=== PATIENT | female | born 2005 | race Caucasian/White ===

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

== ENCOUNTER 2024-01-31 16:31 | Emergency (ER) | payer OTHER, SELFPAY ==
--- NOTE | ~2024-01-31 | CT_ITS ---
EXAMINATION: CT ABDOMEN AND PELVIS WITH CONTRAST CLINICAL INFORMATION: Right lower quadrant pain. COMPARISON: None available. TECHNIQUE: Multidetector volumetric images were obtained from the superior aspect of the liver through the pubic symphysis following administration 80 mL of Omnipaque 350 intravenous contrast. Sagittal and coronal reformatted images were obtained on the technologist's workstation. Oral contrast: No This CT examination was performed using dose optimization techniques as appropriate, variously including the following: *Automated exposure control *Adjustment of mA and/or kV according to patient size (this includes techniques or standardized protocols for targeted exams where dose is matched to indication/reason for exam; i.e. extremities or head) *Use of iterative reconstruction technique DLP: 328 mGy-cm FINDINGS: LUNG BASES: The visualized lung bases are unremarkable. LIVER, GALLBLADDER, AND BILIARY TREE: The liver is normal in size, shape, and attenuation. No focal hepatic lesion or biliary ductal dilatation is present. The gallbladder is unremarkable with no evidence of radiopaque gallstones, gallbladder wall thickening, or obvious pericholecystic inflammatory changes. PANCREAS: Unremarkable. SPLEEN: Unremarkable. ADRENAL GLANDS: Unremarkable. KIDNEYS AND URETERS: The kidneys are normal in size, shape, and attenuation. No hydronephrosis, hydroureter, or calculi seen. No perinephric stranding. BLADDER: There is minimal air within the urinary bladder. GASTROINTESTINAL TRACT: The appendix is within normal limits for size measuring 6 mm. ABDOMINAL WALL: No significant hernia is appreciated. LYMPH NODES: Normal. VASCULAR: Unremarkable. PELVIC VISCERA: There is a 3 cm low-density structure within the right adnexa. There is free fluid within the right adnexa and cul-de-sac. OSSEOUS STRUCTURES: Unremarkable. CT/CT abdomen pelvis w IV con IMPRESSION: 1. There is a 3 cm low-density structure within the right adnexa. There is free fluid within the right adnexa and cul-de-sac. Consider recent cyst rupture. 2. The appendix is within normal limits for size. 3. Minimal air within the urinary bladder. Recommend correlation with recent instrumentation. Fleischner guidelines were followed.
[2024-01-31 17:07] VITALS: BP 114/70; PULSE 85; RESP 16; TEMP 36.6; O2SAT 96; BMI 21.2
--- NOTE | 2024-01-31 17:07 | ECG_ITS ---
Test Reason : DIZZINESS Blood Pressure : / mmHG Vent. Rate : 076 BPM Atrial Rate : 076 BPM P-R Int : 146 ms QRS Dur : 080 ms QT Int : 378 ms P-R-T Axes : 047 094 032 degrees QTc Int : 425 ms Normal sinus rhythm Rightward axis Borderline ECG No previous ECGs available Referred By: Rosita Abdullahi Electronically Signed By:ZACHARIAH MARINO
--- NOTE | 2024-01-31 17:07 | ED.GENADULT ---
HPI - General Adult General Chief complaint: Abdominal Pain Stated complaint: dizzy vomiting nausea right abd pain Time Seen by Provider: 02/01/24 00:17 Source: patient and family Mode of arrival: ambulatory Limitations: no limitations History of Present Illness HPI narrative: Patient comes to the emergency room complaining of right lower quadrant pain for 2 days. Patient states that she feels a bit lightheaded . Patient denies chest pain or shortness of breath, complaining of nausea and vomiting, no diarrhea. Related Data Previous Rx's Medication Instructions Recorded ketorolac 10 mg tablet 10 mg PO BID PRN pain #7 tabs 02/01/24 Allergies Allergy/AdvReac Type Severity Reaction Status Date / Time Sulfa (Sulfonamide Allergy Severe Anaphylaxis Verified 01/31/24 17:06 Antibiotics) sulfamethoxazole Allergy Severe Anaphylaxis Verified 01/31/24 17:06 [From Bactrim] trimethoprim [From Bactrim] Allergy Severe Anaphylaxis Verified 01/31/24 17:06 Review of Systems Review of Systems: Constitutional : No Weight loss, No Fever, No Chills, No Night Sweats, No Fatigue, No Malaise ENT/Mouth : No Hearing loss, No Ear Pain, No Nasal Congestion, No Sinus Pain, No Hoarseness, No sore throat, No Rhinorrhea, No Swallowing Difficulty Eyes: No Eye Pain, No Swelling, No Redness, No Foreign Body, No Discharge, No Vision Changes Cardiovascular : No Chest Pain, No SOB, No Dyspnea on Exertion, No Orthopnea, No Edema, No Palpitations, complaining of lightheadedness, denies syncopal episode Respiratory : No Cough, No Sputum, No Wheezing, No Smoke Exposure, No Dyspnea Gastrointestinal : Complaining of nausea and vomiting No Diarrhea, No Constipation, complaining of right abdominal pain upper and lower quadrant Genitourinary : no irregular bleeding, No Dysuria, No Urinary Frequency, No Hematuria, No Urinary Incontinence, No Urgency, No Flank Pain, No Urinary Flow Changes, No Hesitancy Musculoskeletal : No joint pain, No Myalgias, No Joint Swelling Skin : No Skin Lesions, No rash Neuro : No Weakness, No Numbness, No Paresthesias, No Loss of Consciousness, No Dizziness, No Headache Psych : No Anxiety/Panic, No Depression, No SI/HI/AH/VH, No Social Issues, Heme/Lymph: No Bruising, No Bleeding,No Lymphadenopathy Endocrine : No Polyuria, No Polydipsia, No Temperature Intolerance [facility] Social History Social History (Updated 01/25/23 @ 11:58 by Lena Macias NP) Household Members Other:: Lives w/ mom and sister Smoked in Last 30 Days: No Use of substances other than those prescribed or required for medical reasons: No Advance Directives: No Advance Directives Information Provided: No Patient : No Physical Exam ED Vital Signs: Vital Signs - 24 hr 01/31/24 17:07 01/31/24 19:19 01/31/24 23:24 Temperature 97.9 F 98.0 F 97.4 F Pulse Rate 85 86 83 Respiratory Rate 16 18 17 Blood Pressure 114/70 140/71 H 111/68 Pulse Oximetry 96 99 98 Oxygen Delivery Method Room Air Room Air Room Air 02/01/24 00:24 02/01/24 00:48 02/01/24 00:50 Temperature 97.4 F Pulse Rate 83 63 73 Respiratory Rate 17 Blood Pressure 111/68 101/54 L 114/60 Pulse Oximetry 98 Oxygen Delivery Method Room Air 02/01/24 00:52 Temperature Pulse Rate 88 Respiratory Rate Blood Pressure 112/69 Pulse Oximetry Oxygen Delivery Method BMI result Body Mass Index 21.2 Const Other: Appearance: Alert. Oriented X3. No acute distress. Eyes: Pupils equal, round and reactive to light. ENT: Pharynx normal. Neck: Normal inspection. Neck supple. No lymph nodes noted. No crepitus CVS: Normal heart rate and rhythm. Pulses normal. Normal S1 and S2 Respiratory: No respiratory distress. Breath sounds normal. No Wheezing. No rales Abdomen: Soft , mild discomfort to palpation in right upper quadrant and right lower quadrant, negative Jones sign, no pain at the McBurney's point No rigidity. No distention. Skin: Skin warm and dry. Normal skin color. Normal skin turgor. Extremities: No lower extremity edema. No Lacerations. No Rash Neuro: Oriented X 3. No motor deficit. No sensory deficit. Moving all extremities. No slurred speech. CN 2 through 12 grossly intact Psych: calm, cooperative, normal affect Course Course Course Narrative: RME performed by Rosita Abdullahi PA-C. Patient is a 18 year old assigned female at presenting to the emergency department with abdominal pain, nausea, vomiting, and dizziness. Detailed physical exam and review of systems are deferred to the molder fitting. Labs ordered. Patient placed back in the waiting room pending room availability and results. Medications Administered Discontinued Medications Generic Name Dose Route Start Last Admin Trade Name Delmy PRN Reason Stop Dose Admin Sodium Chloride 1,000 mls @ 999 mls/hr 02/01/24 00:19 02/01/24 01:00 Ns IVCONT 02/01/24 01:19 999 mls/hr .Q1H1M ONE Administration Iohexol 85 ml 02/01/24 01:30 02/01/24 01:30 Iohexol 350 Mg/Ml 100 Ml Infus..Btl IV 02/01/24 01:31 85 ml ONCE ONE Administration Ketorolac Tromethamine 30 mg 02/01/24 00:40 02/01/24 01:00 Ketorolac Tromethamine 30 Mg/Ml Vial IVPUSH 02/01/24 00:41 30 mg ONCE ONE Administration Ondansetron HCl 4 mg 02/01/24 00:40 02/01/24 01:00 Ondansetron Hcl 4 Mg/2 Ml Vial IVPUSH 02/01/24 00:41 4 mg ONCE ONE Administration Medical Decision Making Medical Decision Making [facility] Narrative: -my interpretation of labs, normal hematology, normal chemistry, urinalysis negative, hCG negative -my interpretation of CT scan of the abdomen: No obvious abnormality, questionable small amount of free fluid in the pelvis Differential Diagnosis Differential Diagnoses: The differential diagnosis associated with the presentation includes (Appendicitis, acute cholecystitis, ovarian cysts) Admission/Observation Consideration of admission/observation: Escalation of care including admission/observation considered (Given patient's symptoms, admission considered.) Lab Data [facility] Lab Attestation statement: I reviewed the patient's lab results. 01/31/24 17:51 01/31/24 17:51 Labs: Lab Results 01/31/24 01/31/24 Range/Units 17:51 18:02 WBC 9.5 (4.8-10.8) X10*3/uL RBC 4.40 (4.20-5.50) X10*6/uL Hgb 13.1 (12.0-16.0) g/dl Hct 38.7 (37.0-47.0) % MCV 88.0 (80.0-98.0) fL MCH 29.8 (27.0-33.0) pg MCHC 33.9 (31.0-35.0) g/dl RDW 12.0 (11.0-16.0) % Plt Count 261 (160-400) X10*3/uL MPV 8.5 L (9.4-12.3) fL Immature Gran % (Auto) 0.1 (0.0-0.4) % Neut % (Auto) 60.7 (45-73) % Lymph % (Auto) 27.5 (20-40) % Sawyer % (Auto) 6.1 (2-11) % Eos % (Auto) 5.3 H (0-4) % Baso % (Auto) 0.3 (0-2) % Lymph # (Auto) 2.6 (1.2-4.9) X10*3/uL Sawyer # (Auto) 0.6 (0.1-1.2) X10*3/uL Eos # (Auto) 0.5 H (0.0-0.4) X10*3/uL Baso # (Auto) 0.0 (0.0-0.2) X10*3/uL Abs Immat Gran (auto) 0.01 (0.00-0.03) X10*3/uL Absolute Neuts (auto) 5.8 (2.0-8.3) x10*3/uL Absolute Nucleated RBC 0.000 (0.0-0.012) X10*3/uL Nucleated RBC % (auto) 0.0 (0.0-0.2) /100WBC Sodium 138 (135-145) mmol/L Potassium 3.9 (3.3-5.1) mmol/L Chloride 105 (96-108) mmol/L Carbon Dioxide 25 (22-29) mmol/L Anion Gap 12 (12-20) BUN 10 (9-16) mg/dL Creatinine 0.65 (0.5-1.4) mg/dL Estim Creat Clear Calc 110.1 Estimated GFR > 60 Random Glucose 89 (60-115) mg/dL Calcium 9.4 (8.4-10.2) mg/dL Magnesium 1.9 (1.6-2.6) mg/dL Total Bilirubin 0.3 (0.0-1.0) mg/dL AST 15 (5-31) U/L ALT 13 (0-31) U/L Alkaline Phosphatase 91 (39-117) U/L Troponin I High Sens < 2.7 (<3.5-17.0) ng/L Total Protein 8.0 (6.5-8.0) g/dL Albumin 4.5 (3.5-5.0) g/dL Beta HCG, Quant < 2 mIU/mL Urine Color Yellow Urine Appearance Clear Urine pH 5.5 (5.0-9.0) Ur Specific [place] 1.025 (1.005-1.025) Urine Protein Negative (Neg-Trace) mg/dL Urine Glucose (UA) Negative (Negative) mg/dL Urine Ketones Negative (Negative) mg/dL Urine Blood Negative (Negative) Urine Nitrite Negative (Negative) Ur Leukocyte Esterase Negative (Negative) Influenza Type A (PCR) NEGATIVE (Negative) Influenza Type B (PCR) NEGATIVE (Negative) RSV RNA Qual (PCR) NEGATIVE (Negative) SARS-CoV-2 RNA (RT-PCR) NEGATIVE (Negative) Independent Interpretation I performed an independent interpretation of an: CT Scan Radiology Impression Discussion of test interpretation with radiology: I have reviewed the radiologist's reading. Radiologist Impression: FINDINGS: LUNG BASES: The visualized lung bases are unremarkable. LIVER, GALLBLADDER, AND BILIARY TREE: The liver is normal in size, shape, and attenuation. No focal hepatic lesion or biliary ductal dilatation is present. The gallbladder is unremarkable with no evidence of radiopaque gallstones, gallbladder wall thickening, or obvious pericholecystic inflammatory changes. PANCREAS: Unremarkable. SPLEEN: Unremarkable. ADRENAL GLANDS: Unremarkable. KIDNEYS AND URETERS: The kidneys are normal in size, shape, and attenuation. No hydronephrosis, hydroureter, or calculi seen. No perinephric stranding. BLADDER: There is minimal air within the urinary bladder. GASTROINTESTINAL TRACT: The appendix is within normal limits for size measuring 6 mm. ABDOMINAL WALL: No significant hernia is appreciated. LYMPH NODES: Normal. VASCULAR: Unremarkable. PELVIC VISCERA: There is a 3 cm low-density structure within the right adnexa. There is free fluid within the right adnexa and cul-de-sac. OSSEOUS STRUCTURES: Unremarkable. CT/CT abdomen pelvis w IV con IMPRESSION: 1. There is a 3 cm low-density structure within the right adnexa. There is free fluid within the right adnexa and cul-de-sac. Consider recent cyst rupture. 2. The appendix is within normal limits for size. 3. Minimal air within the urinary bladder. Recommend correlation with recent instrumentation. Fleischner guidelines were followed. Critical Care Time Critical Care Time Critical Care Time: Yes Total Critical Care Time: 30 Attestation: I have personally provided critical care time. Time includes review of lab data, radiology results, discussion with consultants, and monitoring for potential decompensation. Intervention performed as documented. Discharge Plan Discharge Clinical Impression: Ovarian cyst rupture, Orthostatic hypotension Patient Disposition: Home, Self-Care Instructions: Ovarian Cyst (ED), Hypotension (ED) Additional Instructions: Please follow-up with your primary care physician tomorrow. If you have any worsening or new symptoms, please return to the emergency room or call 911 Prescriptions: New ketorolac 10 mg tablet 10 mg PO BID PRN (Reason: pain) Qty: 7 0RF Rx Instructions: Do not take ibuprofen, Aleve, naproxen with this medication, only Tylenol if needed Stand Alone Forms: Work/School Release
[2024-01-31 17:56] LABS: MANUAL DIFF FLAG NO
[2024-01-31 17:59] LABS: Basophils Percent Auto 0.3 % (0-2); Eosinophils Absolute Auto 0.5 X10*3/uL (0.0-0.4); Eosinophils Percent Auto 5.3 % (0-4); Hematocrit 38.7 % (37.0-47.0); Hemoglobin 13.1 g/dl (12.0-16.0); Imm Gran Abs Auto 0.01 X10*3/uL (0.00-0.03); Imm Gran Pct Auto 0.1 % (0.0-0.4); Lymphocytes Absolute Auto 2.6 X10*3/uL (1.2-4.9); Lymphocytes Percent Auto 27.5 % (20-40); Mean Corpuscular HGB Conc 33.9 g/dl (31.0-35.0); Mean Corpuscular Hemoglobin 29.8 pg (27.0-33.0); Mean Platelet Volume 8.5 fL (9.4-12.3); Monocytes Absolute Auto 0.6 X10*3/uL (0.1-1.2); Monocytes Percent Auto 6.1 % (2-11); Neutrophils Absolute Auto 5.8 x10*3/uL (2.0-8.3); Neutrophils Percent Auto 60.7 % (45-73); Platelet Count 261 X10*3/uL (160-400); White Blood Count 9.5 X10*3/uL (4.8-10.8)
[2024-01-31 18:17] LABS: Alanine Aminotransferase 13 U/L (0-31); Albumin Level 4.5 g/dL (3.5-5.0); Alkaline Phosphatase 91 U/L (39-117); Anion Gap 12 (12-20); Aspartate Amino Transferase 15 U/L (5-31); Bilirubin Total 0.3 mg/dL (0.0-1.0); Blood Urea Nitrogen 10 mg/dL (9-16); Calcium 9.4 mg/dL (8.4-10.2); Carbon Dioxide 25 mmol/L (22-29); Chloride 105 mmol/L (96-108); Creatinine Clr Calc Pharmacy 110.1; Estimated Glomerular Filt Rate > 60; Glucose Random 89 mg/dL (60-115); Magnesium 1.9 mg/dL (1.6-2.6); Potassium 3.9 mmol/L (3.3-5.1); Sodium 138 mmol/L (135-145)
[2024-01-31 18:18] LABS: Troponin-I High Sensitivity < 2.7 ng/L (<3.5-17.0)
[2024-01-31 18:18] LABS: Appearance Urine Clear; Color Urine Yellow; Glucose Urine UA Negative (Negative); Leukocyte Esterase Urine Negative (Negative); Nitrite Urine Negative (Negative); PH 5.5 (5.0-9.0); Specific Gravity - Urine 1.025 (1.005-1.025); Urine Blood Negative (Negative); Urine Ketones Negative (Negative); Urine Protein Negative (Neg-Trace)
[2024-01-31 18:20] LABS: HCG Quantitative < 2 mIU/mL
[2024-01-31 18:34] LABS: Influenza A PCR NEGATIVE (Negative); Influenza B PCR NEGATIVE (Negative); Resp Syncy Virus RNA Qual PCR NEGATIVE (Negative); SARS COV2 PCR INHOUSE NEGATIVE (Negative)
[2024-01-31 19:19] VITALS: BP 140/71; PULSE 86; RESP 18; TEMP 36.7; O2SAT 99
[2024-01-31 23:24] VITALS: BP 111/68; PULSE 83; RESP 17; TEMP 36.3; O2SAT 98
[2024-02-01 00:24] VITALS: BP 111/68; PULSE 83; RESP 17; TEMP 36.3; O2SAT 98
[2024-02-01 00:48] VITALS: BP 101/54; PULSE 63
[2024-02-01 00:50] VITALS: BP 114/60; PULSE 73
[2024-02-01 00:52] VITALS: BP 112/69; PULSE 88
[2024-02-01] MEDS: ondansetron HCL 4 MG/2 ML VIAL IVPUSH (01:00)
[2024-02-01] MEDS: Ketorolac Tromethamine 30 MG/ML VIAL IVPUSH (01:00)
[2024-02-01] MEDS: 0.9 % Sodium Chloride 1,000 ML 999 ML IVCONT (01:00)
[2024-02-01] MEDS: iohexoL 350 MG/ML 100 ML INFUS..BTL 85 ML IV (01:30)
[2024-02-01 03:04] VITALS: BP 114/47; PULSE 78; RESP 16; TEMP 36.8; O2SAT 100
[2024-02-01 03:12] VITALS: BP 114/47; PULSE 78; RESP 16; TEMP 36.8; O2SAT 100
== END 2024-02-01 04:13 | disposition home or self-care (01) ==
PROVIDERS: Physician Assistant Medical; Emergency Provider Emergency Medicine; PCP Internal Medicine
DX: N83.201 Unspecified ovarian cyst, right side (principal); I95.1 Orthostatic hypotension; Z11.52 Encounter for screening for COVID-19; Z20.828 Contact with and (suspected) exposure to other viral communicable diseases
CPT/HCPCS: 0241U; 74177; 80053; 81003; 83735; 84484; 84702; 85025; 93005; 96361; 96374; 96375; 99285; J1885; J2405; Q9967

== ENCOUNTER → 2024-01-31 17:07 | Outpatient (BNV) | payer OTHER, SELFPAY | PROVIDERS: Emergency Provider Emergency Medicine; PCP Internal Medicine; Visit Provider Internal Medicine | DX: R42 Dizziness and giddiness (principal) | CPT/HCPCS: 93010 ==

== ENCOUNTER 2024-11-06 09:22 | Emergency (ER) | payer OTHER, SELFPAY ==
[2024-11-06 09:34] VITALS: BP 107/66; PULSE 82; RESP 16; TEMP 36.7; O2SAT 99; BMI 23.2
[2024-11-06 12:37] LABS: Appearance Urine Cloudy; Color Urine Yellow; Glucose Urine UA Negative (Negative); Leukocyte Esterase Urine Large (3+) (Negative); Nitrite Urine Positive (Negative); PH 8.5 (5.0-9.0); Specific Gravity - Urine 1.025 (1.005-1.025); UMIC TRIGGER UACC YES; Urine Blood Moderate (2+) (Negative); Urine Ketones Negative (Negative); Urine Protein 100 (2+) mg/dL (Neg-Trace)
[2024-11-06 12:41] LABS: Bacteria Urine 4+ (None Seen); Hyaline Casts Urine 0-2 /LPF (0-2); RBC Urine >20 /HPF (0-2); UACC Culture Trigger YES; WBC Urine >50 /HPF (0-5)
[2024-11-06 12:43] VITALS: BP 110/62; PULSE 83; RESP 14; TEMP 36.4; O2SAT 99
[2024-11-06 12:44] LABS: UPreg QC Valid YES; Urine Pregnancy NEGATIVE (NEGATIVE)
--- NOTE | 2024-11-06 14:01 | ED_ITS ---
HPI - Female Genitourinary General Chief complaint: Urogenital-Female Stated complaint: UTI? Time Seen by Provider: 11/06/24 12:32 Source: patient and RN notes reviewed Mode of arrival: ambulatory Limitations: no limitations History of Present Illness ED Provider: Mirta Duffy PA-C HPI Narrative: This is a 19-year-old female, with no known medical problems, who presents emergency department with complaints of dysuria, urinary frequency, urgency, suprapubic pain, and hematuria x1 week. Patient states that 1 week ago she noticed her symptoms. She has been taking cranberry pills with out much relief. She denies any new sexual partners, denies any risk for STI. She has a history of urinary tract infections in her symptoms feel similar. Denies fevers or chills. She does endorse some nausea, and had 1 episode of vomiting yesterday. Denies any normal vaginal bleeding or discharge. Last menses was October 17. No other complaints or concerns at this time. MD elicited complaint: dysuria and UTI Vaginal discharge: none Vaginal bleeding: none Urinary symptoms: Dysuria, Urgency, Frequency and Hematuria Exacerbating factors: urination Relieving factors: none Associated symptoms: nausea and vomiting Treatment prior to arrival: none Sexual activity: No Patient : No Related Data Previous Rx's ?Medication ?Instructions ?Recorded ketorolac 10 mg tablet 10 mg PO BID PRN pain #7 tabs 02/01/24 cefuroxime axetil 500 mg tablet 500 mg PO BID 7 days #14 tabs 11/06/24 phenazopyridine 100 mg tablet 100 mg PO TID PRN pain 6 doses #6 11/06/24 (Pyridium) tabs Allergies Allergy/AdvReac Type Severity Reaction Status Date / Time Sulfa (Sulfonamide Allergy Severe Anaphylaxis Verified 11/06/24 09:35 Antibiotics) sulfamethoxazole Allergy Severe Anaphylaxis Verified 11/06/24 09:35 [From Bactrim] trimethoprim [From Bactrim] Allergy Severe Anaphylaxis Verified 11/06/24 09:35 Review of Systems Review of Systems: Yes all other systems are reviewed and are negative Constitutional: Constitutional: Reports as per [facility] Past Medical History Attestation statement: The following information was validated with the patient. Social History Social History Household Members Other:: Lives w/ mom and sister Physical Exam Vital Signs: Vital Signs: Last Vital Signs Temp 97.5 F 11/06/24 12:43 Pulse 83 11/06/24 12:43 Resp 14 11/06/24 12:43 BP 110/62 11/06/24 12:43 Pulse Ox 99 11/06/24 12:43 O2 Del Method Room Air 11/06/24 12:43 BMI result Body Mass Index 23.2 Const: General: cooperative, comfortable and no acute distress Orientation/consciousness: patient oriented x3 Limitations: no limitations HEENT: Head: Yes normal to inspection, Yes normocephalic and Yes atraumatic Ears: hearing grossly normal bilaterally General nose exam: Normal external nose present Face and sinus: Yes normal facial exam Mouth: Normal oral and palatal mucosa present, oropharynx normal and moist mucous membranes Throat: Yes posterior oropharynx normal Eyes: General: appearance normal, both eyes and all related structures Eyel ids: Yes eyelids normal Conjunctivae: conjunctivae normal Sclerae: sclerae normal Pupils: Equal, round and reactive pupils present EOM: EOMs intact bilaterally Neck: Neck: Yes normal visual inspection, Yes full ROM and Yes no lymphadenopathy Lymphatic: no lymphadenopathy noted Chest: Chest palpation & inspection: normal inspection of the chest Resp: Effort & Inspection: normal respiratory effort and able to speak in complete sentences Auscultation: clear to auscultation bilaterally, no crackles, no rales, no rhonchi and no wheezes Cardio: Rate: regular rate Rhythm: regular rhythm Heart sounds: S1 normal heart sound present and S2 normal heart sound present GI: Other: Abdomen is soft, with mild tenderness palpation in the suprapubic region. No rebound or guarding. No tenderness overlying McBurney's point. Inspection: Yes normal to inspection : Other: No CVA tenderness Skin: General skin exam: no rashes or lesions noted Trauma: no lacerations or abrasions Wounds: no wounds Neuro: General: patient oriented x3 and moves all extremities Cranial nerves: Yes Equal, round and reactive pupils present Extrem: General: Yes normal to inspection Right upper extremity: normal to inspection Left upper extremity: normal to inspection Right lower extremity: normal to inspection Left lower extremity: normal to inspection Medical Decision Making Medical Decision Making MDM Narrative: This is a 19-year-old female, with no known medical problems, who presents emergency department with complaints of urinary frequency, urgency, dysuria, hematuria x1 week. On arrival, vital signs within normal limits. She is speaking in full sentences under no acute distress. She has mild suprapubic tenderness on examination. No CVA tenderness. Differential diagnoses include UTI, pyelonephritis, obstructive uropathy, STI. Patient reports no risk of STI. Urine appears to be infected, treat as a urinary tract infection. She has no CVA tenderness suggest pyelonephritis. Given strict return precautions. Patient stable for discharge patient stable for discharge Differential Diagnosis Differential Diagnoses: The differential diagnosis associated with the presentation includes See above Lab Data MDM Lab Attestation statement: I reviewed the patient's lab results. Urine with moderate blood, positive nitrite, large leuk esterases, rbc's, wbc's, 4+ bacteria, negative . Labs: Lab Results 11/06/24 Range/Units 12:28 Urine Color Yellow Urine Appearance Cloudy Urine pH 8.5 (5.0-9.0) Ur Specific [place] 1.025 (1.005-1.025) Urine Protein 100 (2+) H (Neg-Trace) mg/dL Urine Glucose (UA) Negative (Negative) mg/dL Urine Ketones Negative (Negative) mg/dL Urine Blood Moderate (2+) H (Negative) Urine Nitrite Positive H (Negative) Ur Leukocyte Esterase Large (3+) H (Negative) Urine RBC >20 H (0-2) /HPF Urine WBC >50 H (0-5) /HPF Ur Squamous Epith Cells 3-5 (0-2) /HPF Urine Bacteria 4+ (None Seen) Hyaline Casts 0-2 (0-2) /LPF Urine Test NEGATIVE (NEGATIVE) Discharge Plan Discharge Clinical Impression: Urinary tract infection Patient Disposition: Home, Self-Care Instructions: Urinary Tract Infection in Women (ED) Additional Instructions: You were seen in the emergency department due to urinary symptoms. You have a urinary tract infection. Please take full course of antibiotics even if your symptoms improve. We are sending your urine out for further testing, we will call you if we have to switch the antibiotic. Drink plenty of fluids get plenty of rest. Pyridium is a medication that can help alleviate some of the symptoms you are having, this will turn your urine bright orange/yellow. If any new or worsening symptoms occur including but not limited to worsening pain, high fevers, severe back pain, severe abdominal pain, please seek emergent care. Prescriptions: New cefuroxime axetil 500 mg tablet 500 mg PO BID 7 Days Qty: 14 0RF phenazopyridine [Pyridium] 100 mg tablet 100 mg PO TID PRN (Reason: pain) Qty: 6 0RF No Action ketorolac 10 mg tablet 10 mg PO BID PRN (Reason: pain) Qty: 7 0RF Rx Instructions: Do not take ibuprofen, Aleve, naproxen with this medication, only Tylenol if needed Print Language: Burkin[place]
[2024-11-06 15:17] VITALS: BP 110/62; PULSE 83; RESP 14; TEMP 36.4; O2SAT 99
== END 2024-11-06 15:18 | disposition home or self-care (01) ==
PROVIDERS: Emergency Provider Emergency Medicine; PCP Internal Medicine
DX: N39.0 Urinary tract infection, site not specified (principal); Z87.440 Personal history of urinary (tract) infections
CPT/HCPCS: 81001; 81025; 87086; 87088; 87186; 99283

== ENCOUNTER 2024-12-14 10:05 | Emergency (ER) | payer BC, SELFPAY ==
--- NOTE | ~2024-12-14 | US_ITS ---
EXAMINATION: US , LIMITED CLINICAL INFORMATION: woman. Abdominal pain. COMPARISON: None available. TECHNIQUE: Real-time transabdominal obstetric pelvic ultrasound performed using grayscale and color Doppler technique. FINDINGS: LMP: 10/17/2024. Estimated delivery date by LMP: 07/24/2025. There is a single intrauterine gestational sac with a pole. [place]-rump length measures 1.7 cm. heart rate is 169 beats per minutes. No subchorionic abnormality. Right ovary measures 2 x 4 x 1 cm with flow on color Doppler interrogation. No solid or cystic lesion. Left ovary measures 3 x 2 x 2 cm. No solid or cystic lesion. There is flow on color Doppler interrogation. US/US OB limited IMPRESSION: Single viable intrauterine gestation corresponding to 8 weeks and 2 days by ultrasound. No ovarian torsion. Electronically signed by: Aldo Archuleta MD 12/14/2024 12:47 PM [facility] [place]
[2024-12-14 10:28] VITALS: BP 111/53; PULSE 78; RESP 16; TEMP 36.8; O2SAT 100; BMI 23.4
[2024-12-14 10:52] LABS: MANUAL DIFF FLAG NO
[2024-12-14 10:54] LABS: Basophils Percent Auto 0.1 % (0-2); Eosinophils Absolute Auto 0.1 X10*3/uL (0.0-0.4); Eosinophils Percent Auto 0.7 % (0-4); Hematocrit 39.1 % (37.0-47.0); Hemoglobin 13.4 g/dl (12.0-16.0); Imm Gran Abs Auto 0.01 X10*3/uL (0.00-0.03); Imm Gran Pct Auto 0.1 % (0.0-0.4); Lymphocytes Absolute Auto 1.6 X10*3/uL (1.2-4.9); Lymphocytes Percent Auto 22.4 % (20-40); Mean Corpuscular HGB Conc 34.3 g/dl (31.0-35.0); Mean Corpuscular Hemoglobin 29.8 pg (27.0-33.0); Mean Corpuscular Volume 86.9 fL (80.0-98.0); Mean Platelet Volume 8.7 fL (9.4-12.3); Monocytes Absolute Auto 0.5 X10*3/uL (0.1-1.2); Monocytes Percent Auto 7.1 % (2-11); Neutrophils Percent Auto 69.6 % (45-73); Platelet Count 273 X10*3/uL (160-400); Red Cell Distribution Width 11.9 % (11.0-16.0); White Blood Count 7.2 X10*3/uL (4.8-10.8)
[2024-12-14 11:14] LABS: Alanine Aminotransferase 33 U/L (0-31); Albumin Level 4.2 g/dL (3.5-5.0); Alkaline Phosphatase 86 U/L (39-117); Anion Gap 11 (12-20); Aspartate Amino Transferase 35 U/L (5-31); Bilirubin Direct 0.2 mg/dL (0.0-0.5); Bilirubin Total 0.4 mg/dL (0.0-1.0); Blood Urea Nitrogen 7 mg/dL (9-16); Calcium 8.9 mg/dL (8.4-10.2); Carbon Dioxide 23 mmol/L (22-29); Chloride 108 mmol/L (96-108); Estimated Glomerular Filt Rate > 60; Glucose Random 101 mg/dL (60-115); Lipase 25 U/L (8-78); Potassium 3.9 mmol/L (3.3-5.1); Sodium 138 mmol/L (135-145); Total Protein 8.2 g/dL (6.5-8.0)
[2024-12-14 11:40] LABS: Influenza A PCR POSITIVE (Negative); Influenza B PCR NEGATIVE (Negative); Resp Syncy Virus RNA Qual PCR NEGATIVE (Negative); SARS COV2 PCR INHOUSE NEGATIVE (Negative)
[2024-12-14 11:43] LABS: HCG Quantitative 114827 mIU/mL
--- NOTE | 2024-12-14 13:19 | ED_ITS ---
HPI - General Adult General Chief complaint: Nausea/Vomiting/Diarrhea Stated complaint: Abd pain/side pain Time Seen by Provider: 12/14/24 13:19 Source: patient and other (patient's fiance) Mode of arrival: ambulatory Limitations: no limitations History of Present Illness ED Provider: Rosita Abdullahi PA-C HPI narrative: Patient is a 19 year old assigned female at with a history of early presenting to the emergency department today with nausea, abdominal pain, and vomiting. Patient states that she has had a positive home test but has not met with an OBGYN yet. Patient denies any dizziness, lightheadedness, fever, chills, blurry vision, double vision, loss of vision, chest pain, difficulty breathing, shortness of breath, back pain, night sweats, pain with urination, increased urinary frequency, increased urinary urgency, blood in her urine or stool, syncope or a near syncopal episode, recent trauma or falls, bowel incontinence, bladder incontinence, or any other complaints at this time. Relieving factors: none Exacerbating factors: none Associated symptoms: nausea/vomiting Treatments prior to arrival: none Related Data Previous Rx's ?Medication ?Instructions ?Recorded ketorolac 10 mg tablet 10 mg PO BID PRN pain #7 tabs 02/01/24 cefuroxime axetil 500 mg tablet 500 mg PO BID 7 days #14 tabs 11/06/24 phenazopyridine 100 mg tablet 100 mg PO TID PRN pain 6 doses #6 11/06/24 (Pyridium) tabs Allergies Allergy/AdvReac Type Severity Reaction Status Date / Time Sulfa (Sulfonamide Allergy Severe Anaphylaxis Verified 12/14/24 10:29 Antibiotics) sulfamethoxazole Allergy Severe Anaphylaxis Verified 12/14/24 10:29 [From Bactrim] trimethoprim [From Bactrim] Allergy Severe Anaphylaxis Verified 12/14/24 10:29 Review of Systems 2 Constitutional: Constitutional: Reports no additional constitutional complaints, Denies chills, Denies fever(s) and Denies night sweats Eyes: Eyes: Reports no additional eye complaints, Denies blurry vision, Denies change in vision, Denies diplopia, Denies eye discharge, Denies loss of vision and Denies eye pain ENT: Denies dizziness Cardiovascular: Cardiovascular: Reports no additional cardiovascular complaints, Denies chest pain, Denies lightheadedness, Denies Loss of Consciousness and Denies dyspnea Respiratory: Respiratory: Reports no additional respiratory complaints and Denies dyspnea Gastrointestinal: Gastrointestinal: Reports no additional gastrointestinal complaints, Reports abdominal pain, Denies melena, Denies hematochezia, Denies change in bowel habits, Denies change in stool character, Reports nausea and Reports vomiting Genitourinary: Genitourinary: Denies hematuria, Denies urinary frequency, Denies dysuria, Denies urinary incontinence, Denies urinary hesitancy and Denies urinary urgency Musculoskeletal: Musculoskeletal: Reports no additional musculoskeletal complaints, Denies numbness and Denies tingling Neurologic: Denies dizziness, Denies loss of vision, Denies numbness and Denies tingling Psychiatric: Psychiatric: Reports no additional psychiatric complaints Endocrine: Endocrine: Reports no additional endocrine complaints Hematologic/Lymphatic: Hematologic/Lymphatic: Reports no additional hematologic/lymphatic complaints Allergic/Immunologic: Allergic/Immunologic: Reports no additional allergic/immunologic complaints PMFSH Past Medical History Attestation statement: The following information was validated with the patient. Source: old records reviewed and nursing notes reviewed Social History Social History Household Members Other:: Lives w/ mom and sister Advance Directives: No Advance Directives Information Provided: Yes Physical Exam ED Vital Signs: Vital Signs - 24 hr 12/14/24 10:28 12/14/24 13:26 Temperature 98.3 F 98.3 F Pulse Rate 78 78 Respiratory Rate 16 16 Blood Pressure 111/53 L 111/53 L Pulse Oximetry 100 100 Oxygen Delivery Method Room Air Room Air BMI result Body Mass Index 23.4 Const General: cooperative, no acute distress, alert and awake Nutritional Appearance: well nourished Orientation/consciousness: patient oriented x3 Limitations: no limitations [facility]: Yes normal to inspection and Yes atraumatic Ears: hearing grossly normal bilaterally and external ears normal General nose exam: Normal external nose present, no nasal discharge noted and no epistaxis Face and sinus: Yes normal facial exam, No abrasion and No laceration Mouth: Normal oral and palatal mucosa present, no drooling and no muffled voice Eyes General: appearance normal, both eyes and all related structures Periorbital: periorbital findings normal Eyelids: Yes eyelids normal Conjunctivae: conjunctivae normal Pupils: Equal, round and reactive pupils present EOM: EOMs intact bilaterally Neck Neck: Yes normal visual inspection, Yes full ROM and Yes no lymphadenopathy Chest Chest palpation & inspection: normal inspection of the chest Resp Effort & Inspection: normal respiratory effort and able to speak in complete sentences GI Inspection: Yes normal to inspection Neuro General: patient oriented x3 and moves all extremities Cranial nerves: Yes Equal, round and reactive pupils present Cognition (Neuro): normal cognition Extrem General: Yes normal to inspection, Yes full ROM and Yes capillary refill normal Psych Appearance: grossly normal Mental Status: mental status grossly normal Affect: normal affect Attitude: cooperative Thought process: Normal thought process present Thought content: Normal thought content present Insight: Good insight present (Psych) Medical Decision Making Medical Decision Making MDM Narrative: Patient is a 19 year old assigned female at with a history of early presenting to the emergency department today with nausea, abdominal pain, and vomiting. Patient's physical exam was unremarkable. Patient's blood work showed showed an HCG of [id number] which is consistent with early . Patient's influenza test was positive. Patient's OBGYN US showed an 8 week IUP. I explained my physical exam findings as well as all test results to the patient and the patient's fiance. I answered all questions asked by the patient and the patient's fiance. I stressed the importance of the patient taking her medication as directed (either prescribed or as the over the counter packaging recommends). I stressed the importance of the patient following up with her primary care provider and her OBGYN. I stressed the importance of the patient returning to the emergency department immediately if her symptoms were to worsen or if she were to develop any dizziness, shortness of breath, difficulty breathing, chest pain, blurry vision, loss of vision, nausea, vomiting, abdominal pain, fever, chills, back pain, or any other complaints. Patient and the patient's fiance verbalized agreement and understanding with this treatment plan and discharge. Differential Diagnosis Differential Diagnoses: The differential diagnosis associated with the presentation includes Early Influenza Abdominal pain Admission/Observation Consideration of admission/observation: Escalation of care including admission/observation considered Patient would have been admitted to the hospital had her work up had any findings where hospital admission was appropriate and her clinical presentation warranted hospital admission. Lab Data [facility] Lab Attestation statement: I reviewed the patient's lab results. My interpretation of these results are in the [facility] Rationale portion of this note. 12/14/24 10:46 12/14/24 10:46 Labs: Lab Results 12/14/24 Range/Units 10:46 WBC 7.2 (4.8-10.8) X10*3/uL RBC 4.50 (4.20-5.50) X10*6/uL Hgb 13.4 (12.0-16.0) g/dl Hct 39.1 (37.0-47.0) % MCV 86.9 (80.0-98.0) fL MCH 29.8 (27.0-33.0) pg MCHC 34.3 (31.0-35.0) g/dl RDW 11.9 (11.0-16.0) % Plt Count 273 (160-400) X10*3/uL MPV 8.7 L (9.4-12.3) fL Immature Gran % (Auto) 0.1 (0.0-0.4) % Neut % (Auto) 69.6 (45-73) % Lymph % (Auto) 22.4 (20-40) % [place] % (Auto) 7.1 (2-11) % Eos % (Auto) 0.7 (0-4) % Baso % (Auto) 0.1 (0-2) % Lymph # (Auto) 1.6 (1.2-4.9) X10*3/uL [place] # (Auto) 0.5 (0.1-1.2) X10*3/uL Eos # (Auto) 0.1 (0.0-0.4) X10*3/uL Baso # (Auto) 0.0 (0.0-0.2) X10*3/uL Abs Immat Gran (auto) 0.01 (0.00-0.03) X10*3/uL Absolute Neuts (auto) 5.0 (2.0-8.3) x10*3/uL Absolute Nucleated RBC 0.000 (0.0-0.012) X10*3/uL Nucleated RBC % (auto) 0.0 (0.0-0.2) /100WBC Sodium 138 (135-145) mmol/L Potassium 3.9 (3.3-5.1) mmol/L Chloride 108 (96-108) mmol/L Carbon Dioxide 23 (22-29) mmol/L Anion Gap 11 L (12-20) BUN 7 L (9-16) mg/dL Creatinine 0.55 (0.5-1.4) mg/dL Estim Creat Clear Calc 129.0 Estimated GFR > 60 Random Glucose 101 (60-115) mg/dL Calcium 8.9 (8.4-10.2) mg/dL Total Bilirubin 0.4 (0.0-1.0) mg/dL Direct Bilirubin 0.2 (0.0-0.5) mg/dL AST 35 H (5-31) U/L ALT 33 H (0-31) U/L Alkaline Phosphatase 86 (39-117) U/L Total Protein 8.2 H (6.5-8.0) g/dL Albumin 4.2 (3.5-5.0) g/dL Lipase 25 (8-78) U/L Beta HCG, Quant [id number] mIU/mL Influenza Type A (PCR) POSITIVE A (Negative) Influenza Type B (PCR) NEGATIVE (Negative) RSV RNA Qual (PCR) NEGATIVE (Negative) SARS-CoV-2 RNA (RT-PCR) NEGATIVE (Negative) Independent Interpretation I performed an independent interpretation of an: Ultrasound Interpretation: My interpretation is in agreement with the radiologist's impression of this imaging study. L EXAMINATION: US , LIMITED CLINICAL INFORMATION: woman. Abdominal pain. COMPARISON: None available. TECHNIQUE: Real-time transabdominal obstetric pelvic ultrasound performed using grayscale and color Doppler technique. FINDINGS: LMP: 10/17/2024. Estimated delivery date by LMP: 07/24/2025. There is a single intrauterine gestational sac with a pole. [place]-rump length measures 1.7 cm. heart rate is 169 beats per minutes. No subchorionic abnormality. Right ovary measures 2 x 4 x 1 cm with flow on color Doppler interrogation. No solid or cystic lesion. Left ovary measures 3 x 2 x 2 cm. No solid or cystic lesion. There is flow on color Doppler interrogation. US/US OB limited IMPRESSION: Single viable intrauterine gestation corresponding to 8 weeks and 2 days by ultrasound. No ovarian torsion. Electronically signed by: Aldo Archuleta MD 12/14/2024 12:47 PM [facility] [place] Dictated By: Aldo Bourgeois MD Signed By: Electronically signed by Aldo Mcdonough MD 12/14/24 1247 Radiology Impression Discussion of test interpretation with radiology: I have reviewed the radiologist's reading. Independent Historian Clinical information obtained from an independent historian. History obtained from or confirmed by: Other (patient's fiance provided additional history and confirmed the history provided by the patient.) Discharge Plan Discharge Clinical Impression: Influenza, Early stage of Patient Disposition: Home, Self-Care Instructions: (ED), Influenza (DC) Additional Instructions: Your US showed a normal intrauterine . Follow up with your primary care provider. Return to the emergency department immediately if your symptoms worsen or if you develop any dizziness, shortness of breath, difficulty breathing, chest pain, blurry vision, loss of vision, nausea, vomiting, abdominal pain, fever, chills, back pain, or any other complaints. Prescriptions: No Action ketorolac 10 mg tablet 10 mg PO BID PRN (Reason: pain) Qty: 7 0RF Rx Instructions: Do not take ibuprofen, Aleve, naproxen with this medication, only Tylenol if needed cefuroxime axetil 500 mg tablet 500 mg PO BID 7 Days Qty: 14 0RF phenazopyridine [Pyridium] 100 mg tablet 100 mg PO TID PRN (Reason: pain) Qty: 6 0RF Referrals: Anika Garcia MD [Primary Care Provider] - Stand Alone Forms: Work/School Release Interventions: ED Discharge Assessment Last Done: 12/14/24 13:26 Discharge Date/Time: 12/14/24 13:31 Print Language: Vietnamese
[2024-12-14 13:26] VITALS: BP 111/53; PULSE 78; RESP 16; TEMP 36.8; O2SAT 100
== END 2024-12-14 13:31 | disposition home or self-care (01) ==
LOC: HO.ED 13:28
PROVIDERS: Emergency Provider Emergency Medicine; PCP Internal Medicine
DX: O99.891 Other specified diseases and conditions complicating pregnancy (principal); J10.1 Influenza due to other identified influenza virus with other respiratory manifestations; R10.9 Unspecified abdominal pain; O21.9 Vomiting of pregnancy, unspecified; Z3A.08 8 weeks gestation of pregnancy; Z03.818 Encounter for observation for suspected exposure to other biological agents ruled out
CPT/HCPCS: 0241U; 76815; 80048; 80076; 83690; 84702; 85025; 99282; 99284

== ENCOUNTER → 2024-12-14 11:52 | Outpatient (BNV) | payer BC, SELFPAY | PROVIDERS: PCP Internal Medicine; Visit Provider Radiology Diagnostic Radiology | DX: R10.9 Unspecified abdominal pain (principal) | CPT/HCPCS: 76815 ==

== ENCOUNTER 2025-01-24 15:03 | Emergency (ER) | payer BC, SELFPAY ==
--- NOTE | ~2025-01-24 | US_ITS ---
CLINICAL HISTORY: RLQ pain, ovarian cyst, R O torsion US pelvis transabdominal and transvaginal with Doppler Comparison: CT/SR - CT ABDOMEN PELVIS W IV CON - 01/24/25 21:06 EDT US/SR - US OB LIMITED - 12/14/24 12:11 EST Findings: Transabdominal scanning performed for overall anatomy. Transvaginal scanning performed for additional detail. Anteverted uterus is 10.0 cm length. Normal myometrium. Thickened endometrium measuring 2.1 cm with cystic areas and vascularity. Right ovary 4.1 x 2.7 x 3.2 cm. Simple cyst measuring 4.0 x 2.2 x 3.0 Left ovary not visualized. Normal color Doppler with arterial/venous spectral tracing of the right ovary. No visualized free fluid. IMPRESSION: Thickened endometrium with vascularity concerning for retained products of conception. Simple cyst in the right ovary. No evidence of ovarian torsion. This document has been electronically signed by: Natasha St MD on 01/24/2025 23:56:34
--- NOTE | ~2025-01-24 | CT_ITS ---
CLINICAL HISTORY: RLQ pain CT abdomen and pelvis with contrast Comparison: CT/SR - CT ABDOMEN PELVIS W IV CON - 02/01/24 01:25 EDT Findings: No consolidation or effusion. The gallbladder and solid organs are within normal limits. No renal stones. No bowel obstruction, pneumoperitoneum, or pneumatosis. Normal appendix. 3.2 cm probable right ovarian cyst. Uterus and urinary bladder are within normal limits. Trace free fluid in the right lower quadrant, similar to the prior CT. The bones are intact. IMPRESSION: 1. Normal appendix. 2. 3.2 cm right ovarian cyst. 3. Trace free fluid in the right lower quadrant, similar to the prior CT. This document has been electronically signed by: Natasha St MD on 01/24/2025 22:26:09
[2025-01-24 15:06] VITALS: BP 120/66; PULSE 117; RESP 19; TEMP 36.8; O2SAT 98; BMI 23.8
--- NOTE | 2025-01-24 15:11 | ED_ITS ---
HPI - General Adult General Chief complaint: Abdominal Pain Stated complaint: R lower abd pain Time Seen by Provider: 01/24/25 22:00 Source: patient Mode of arrival: ambulatory Limitations: no limitations History of Present Illness ED Provider: Dr. Sami Pierre HPI narrative: 19-year-old female G1 P 0, therapeutic 1 month prior at 11 weeks gestation who presents emergency department for evaluation of right lower quadrant abdominal pain, nausea and vomiting with lack of appetite. Patient states that she had a gradual onset of epigastric / periumbilical pain at around 13:00 hours. She states the pain then moved the right lower quadrant. She states she was currently having sharp pain in her right lower quadrant which is worse with movement. She also states the pain radiates down her right leg and to her right back , is worse with movement of her right leg. Pain is a sharp pain which is 8/10. The patient had nausea with 1 episode of vomiting. She denied diarrhea or change in her bowel movements. She had subjective fever with no chills. She noted frequency but no dysuria. The patient states that she had a normal amount of bleeding after the therapeutic which resolved. She denies any unusual vaginal discharge. Related Data Previous Rx's ?Medication ?Instructions ?Recorded ketorolac 10 mg tablet 10 mg PO BID PRN pain #7 tabs 02/01/24 cefuroxime axetil 500 mg tablet 500 mg PO BID 7 days #14 tabs 11/06/24 phenazopyridine 100 mg tablet 100 mg PO TID PRN pain 6 doses #6 11/06/24 (Pyridium) tabs Allergies Allergy/AdvReac Type Severity Reaction Status Date / Time Sulfa (Sulfonamide Allergy Severe Anaphylaxis Verified 01/24/25 15:09 Antibiotics) sulfamethoxazole Allergy Severe Anaphylaxis Verified 01/24/25 15:09 [From Bactrim] trimethoprim [From Bactrim] Allergy Severe Anaphylaxis Verified 01/24/25 15:09 Review of Systems 2 Review of Systems: Yes all other systems are reviewed and are negative [facility] Past Medical History [facility] Narrative: Social history: She denies tobacco, alcohol and drug use. Social History Social History Household Members Other:: Lives w/ mom and sister Smoked in Last 30 Days: No Use of substances other than those prescribed or required for medical reasons: No Advance Directives: No Advance Directives Information Provided: No Do you have a plan to hurt others: No Plan Physical Exam ED Vital Signs: Vital Signs - 24 hr 01/24/25 15:06 01/24/25 20:33 01/24/25 21:15 Temperature 98.2 F 100.3 F 99.3 F Pulse Rate 117 H 133 H 114 H Respiratory Rate 19 19 16 Blood Pressure 120/66 117/67 110/59 L Pulse Oximetry 98 98 99 Oxygen Delivery Method Room Air Room Air Room Air Nasal Cannula with ETCO2 BMI result Body Mass Index 23.8 Vital signs were normal except for elevated heart rate 114-133 beats per minute Exam: General: Awake, alert in no distress Head: Normocephalic, atraumatic EENT: PERRL, Lids normal, sclera normal, conjunctiva normal, nose normal , ears normal, throat without erythema or exudates Neck: Supple, no adenopathy Lung: breath sounds symmetric, no wheezing, rales or rhonchi Chest: symmetric movement, nontender Heart: regular rate and rhythm, normal S1, S2 no murmurs or rubs Abdomen: soft, moderate to severe right lower quadrant tenderness, increased pain in the right lower quadrant with movement of the right lower extremity, no voluntary or involuntary guarding, no referred pain with palpation of the left lower quadrant. nondistended, normal bowel sounds Back: no vertebral tenderness, moderate right CVA tenderness Extremities: no deformities, moves all extremities symmetrically Neuro: Awake, alert, oriented, normal speech, cranial nerves intact, moves all extremities symmetrically Psych: Pleasant, cooperative Course Course Course Narrative: RME, this is a rapid medical exam performed by Arron Pineda please refer to primary provider for complete H&P- 19-year-old female presents for evaluation of right lower abdominal pain. She reports feeling unwell throughout the day today but her pain started rather suddenly at about noon today. Her pain is in the right lower abdomen, worse with movement. She does report that she had an elective on 12/29/2024. She denies any complaints with this we, no vaginal bleeding or discharge. Plan for labs, urinalysis. Will defer any advanced imaging to primary ER provider Medications Administered Generic Name Dose Route Start Last Admin Trade Name Freq PRN Reason Stop Dose Admin Sodium Chloride 1,000 mls @ 125 mls/hr 01/24/25 23:30 01/25/25 00:01 Ns IVCONT 125 mls/hr .Q8H MAURICE Administration Discontinued Medications Generic Name Dose Route Start Last Admin Trade Name Delmy PRN Reason Stop Dose Admin Acetaminophen 650 mg 01/24/25 20:36 01/24/25 20:39 Acetaminophen 325 Mg Tablet PO 01/24/25 20:37 650 mg ONCE ONE Administration Sodium Chloride 1,000 mls @ 999 mls/hr 01/24/25 22:18 01/24/25 23:28 Ns IV 01/24/25 23:18 Infused .Q1H1M STA Infusion Piperacillin Sod/Tazobactam 100 mls @ 200 mls/hr 01/24/25 23:49 01/25/25 00:01 Sod 4.5 gm/ Sodium Chloride IV 01/25/25 00:18 200 mls/hr ONCE ONE Administration Iohexol 85 ml 01/24/25 21:11 01/24/25 21:12 Iohexol 350 Mg/Ml 100 Ml Infus..Btl IV 01/24/25 21:12 85 ml ONCE ONE Administration Ketorolac Tromethamine 15 mg 01/24/25 22:18 01/24/25 22:27 Ketorolac Tromethamine 15 Mg/Ml Vial IVPUSH 01/24/25 22:19 15 mg ONCE STA Administration Morphine Sulfate 4 mg 01/24/25 23:18 01/25/25 00:01 Morphine Sulfate 4 Mg/Ml Cartridge IVPUSH 01/24/25 23:19 4 mg ONCE STA Administration Protocol Ondansetron HCl 4 mg 01/24/25 22:18 01/24/25 22:27 Ondansetron Hcl 4 Mg/2 Ml Vial IVPUSH 01/24/25 22:19 4 mg ONCE ONE Administration Medical Decision Making Medical Decision Making MDM Narrative: 19-year-old female G1 P 0, therapeutic 1 month at 11 weeks gestation who presents emergency department for evaluation of right lower quadrant abdominal pain, nausea and vomiting with lack of appetite. Patient states that she had a gradual onset of epigastric / periumbilical pain at around 13:00 hours. She states the pain then moved the right lower quadrant. She states she was currently having sharp pain in her right lower quadrant which is worse with movement. She also states the pain radiates down her right leg and to her right back , is worse with movement of her right leg. Pain is a sharp pain which is 8/10. The patient had nausea with 1 episode of vomiting. She denied diarrhea or change in her bowel movements. She had subjective fever with no chills. She noted frequency but no dysuria. The patient states that she had a normal amount of bleeding after the therapeutic which resolved. She denies any unusual vaginal discharge. Vital signs revealed elevated heart rate otherwise unremarkable. Exam did reveal right lower quadrant tenderness, right CVA tenderness and increased right lower quadrant pain with movement of her right lower extremity. Differential diagnosis: ?Includes but is not limited to appendicitis, pancreatitis, gastritis, endometriosis, PID, urinary tract infection, electrolyte abnormalities, anemia Course: 22:44 My interpretation of the patient's laboratory evaluation is as follows: WBC elevated 16,600. ALT elevated 37. Urinalysis and microscopic was unremarkable. Quantitative beta-hCG was positive at 78 but I suspect this is residual from her recent , previous quantitative beta-hCG on 12/14/2024 was 114,827. Lipase was normal at 13. Patient was treated with normal saline IV x1 L, Toradol 15 mg IV and Zofran [address] scan of the abdomen pelvis radiology reading positive for a 3.2 cm probable right ovarian cyst with a normal-appearing appendix. There was trace fluid in the right lower quadrant noted on the CT scan as well. I will obtain a vaginal ultrasound to rule out ovarian torsion however I am still concerned that the patient may have acute appendicitis based on her presentation physical findings. 23:27 Duplex vaginal ultrasound revealed a 4 x 2.2 x 3.0 right ovarian cyst with normal venous and arterial flow. There was no fluid in the cul-de-sac. Radiologist was concerned that the patient had thickened endometrium at 2.1 cm with cystic structure which could be consistent with retained products of conception. Patient states that she had moderate discomfort during the pelvic ultrasound when the tech was moving the want around in her vagina. I did discuss the patient's presentation over tiger text with our covering surgeon, Dr. Odell. We do not have OBGYN coverage , therefore we you will need to try to transfer the patient to a tertiary center. I am still concerned that the patient may have early appendicitis as well. I did order morphine 4 mg every 4 hours as needed for pain, Zofran every 6 hours as needed for nausea or vomiting and normal saline at 125 cc/hour. Patient was ordered to get 1 dose of Zosyn 4.5 g IV. 00:33 I did discuss the patient with the covering OBGYN physician at [facility], Dr. Marcial. In his opinion, since the patient was not having vaginal bleeding, the possibility of retained products of conception are low and he recommended that the patient be transferred to [facility] ED for a surgical and he could consult for gynecology. Transfer line recommended that we also discuss the patient's presentation with the covering general surgeon at [facility]. 00:42 I did discuss the patient's presentation with the covering surgeon at [facility], Dr. Palomares and he did accept the patient as an ED to ED transfer. I did discuss this with the patient and the patient's significant other and the patient will be transferred by BLS ambulance to [facility] ED. Admission/Observation Consideration of admission/observation: Escalation of care including admission/observation considered (Yes) Consult Healthcare Provider Management of the patient was discussed with: Tab Machine Operator ([facility] general surgeon, Dr. Odell, [facility] OBGYN Dr. Marcial, [facility] surgeon Dr. Palomares) Lab Data MDM Lab Attestation statement: I reviewed the patient's lab results. 01/24/25 15:31 01/24/25 15:31 Labs: Lab Results 01/24/25 Range/Units 15:31 WBC 16.6 H (4.8-10.8) X10*3/uL RBC 4.22 (4.20-5.50) X10*6/uL Hgb 12.3 (12.0-16.0) g/dl Hct 37.1 (37.0-47.0) % MCV 87.9 (80.0-98.0) fL MCH 29.1 (27.0-33.0) pg MCHC 33.2 (31.0-35.0) g/dl RDW 12.8 (11.0-16.0) % Plt Count 313 (160-400) X10*3/uL MPV 9.0 L (9.4-12.3) fL Immature Gran % (Auto) 0.5 H (0.0-0.4) % Neut % (Auto) 85.3 H (45-73) % Lymph % (Auto) 6.5 L (20-40) % [place] % (Auto) 7.1 (2-11) % Eos % (Auto) 0.3 (0-4) % Baso % (Auto) 0.3 (0-2) % Lymph # (Auto) 1.1 L (1.2-4.9) X10*3/uL [place] # (Auto) 1.2 (0.1-1.2) X10*3/uL Eos # (Auto) 0.1 (0.0-0.4) X10*3/uL Baso # (Auto) 0.1 (0.0-0.2) X10*3/uL Abs Immat Gran (auto) 0.08 H (0.00-0.03) X10*3/uL Absolute Neuts (auto) 14.2 H (2.0-8.3) x10*3/uL Absolute Nucleated RBC 0.000 (0.0-0.012) X10*3/uL Nucleated RBC % (auto) 0.0 (0.0-0.2) /100WBC Sodium 137 (135-145) mmol/L Potassium 3.5 (3.3-5.1) mmol/L Chloride 106 (96-108) mmol/L Carbon Dioxide 23 (22-29) mmol/L Anion Gap 12 (12-20) BUN 4 L (9-16) mg/dL Creatinine 0.64 (0.5-1.4) mg/dL Estim Creat Clear Calc 110.8 Estimated GFR > 60 Random Glucose 103 (60-115) mg/dL Calcium 9.7 D (8.4-10.2) mg/dL Total Bilirubin 0.4 (0.0-1.0) mg/dL AST 28 (5-31) U/L ALT 37 H (0-31) U/L Alkaline Phosphatase 99 (39-117) U/L Total Protein 8.6 H (6.5-8.0) g/dL Albumin 4.4 (3.5-5.0) g/dL Lipase 13 (8-78) U/L Beta HCG, Quant 78 mIU/mL Urine Color Yellow Urine Appearance Clear Urine pH 6.0 (5.0-9.0) Ur Specific [place] 1.010 (1.005-1.025) Urine Protein Negative (Neg-Trace) mg/dL Urine Glucose (UA) Negative (Negative) mg/dL Urine Ketones Negative (Negative) mg/dL Urine Blood Negative (Negative) Urine Nitrite Negative (Negative) Ur Leukocyte Esterase Negative (Negative) Urine RBC 0-2 (0-2) /HPF Urine WBC 0-5 (0-5) /HPF Ur Squamous Epith Cells 0-2 (0-2) /HPF Urine Bacteria None Seen (None Seen) Hyaline Casts 0-2 (0-2) /LPF Radiology Impression Discussion of test interpretation with radiology: I have reviewed the radiologist's reading. Radiologist Impression: US pelvis transabdominal and transvaginal with Doppler Comparison: CT/SR - CT ABDOMEN PELVIS W IV CON - 01/24/25 21:06 EDT US/SR - US OB LIMITED - 12/14/24 12:11 EST Findings: Transabdominal scanning performed for overall anatomy. Transvaginal scanning performed for additional detail. Anteverted uterus is 10.0 cm length. Normal myometrium. Thickened endometrium measuring 2.1 cm with cystic areas and vascularity. Right ovary 4.1 x 2.7 x 3.2 cm. Simple cyst measuring 4.0 x 2.2 x 3.0 Left ovary not visualized. Normal color Doppler with arterial/venous spectral tracing of the right ovary. No visualized free fluid. IMPRESSION: Thickened endometrium with vascularity concerning for retained products of conception. Simple cyst in the right ovary. No evidence of ovarian torsion. This document has been electronically signed by: Natasha St MD on 01/24/2025 23:56:34 CT abdomen and pelvis with contrast Comparison: CT/SR - CT ABDOMEN PELVIS W IV CON - 02/01/24 01:25 EDT Findings: No consolidation or effusion. The gallbladder and solid organs are within normal limits. No renal stones. No bowel obstruction, pneumoperitoneum, or pneumatosis. Normal appendix. 3.2 cm probable right ovarian cyst. Uterus and urinary bladder are within normal limits. Trace free fluid in the right lower quadrant, similar to the prior CT. The bones are intact. IMPRESSION: 1. Normal appendix. 2. 3.2 cm right ovarian cyst. 3. Trace free fluid in the right lower quadrant, similar to the prior CT. This document has been electronically signed by: Natasha St MD on 01/24/2025 22:26:09 Dictated By: Natasha St MD Independent Historian Clinical information obtained from an independent historian. History obtained from or confirmed by: Other (Significant other) Critical Care Time Critical Care Time Critical Care Time: Yes Total Critical Care Time: 45 Attestation: Critical Care: The patient was critically ill with a high probability of imminent or life threatening deterioration. I spent greater than 30 minutes of discontinuous time evaluating the patient,delivering critical care at the bedside, discussing and evaluating pertinent data with consultants. Critical care time does not include time spent performing separately billable procedures or teaching. Total time spent performing critical care was 45 minutes. Discharge Plan Discharge Clinical Impression: Abdominal pain, Retained products of conception following Patient Disposition: [facility] Transfer Details: ED to ED transfer, general surgeon Dr. Palomares accepting physician Prescriptions: No Action ketorolac 10 mg tablet 10 mg PO BID PRN (Reason: pain) Qty: 7 0RF Rx Instructions: Do not take ibuprofen, Aleve, naproxen with this medication, only Tylenol if needed cefuroxime axetil 500 mg tablet 500 mg PO BID 7 Days Qty: 14 0RF phenazopyridine [Pyridium] 100 mg tablet 100 mg PO TID PRN (Reason: pain) Qty: 6 0RF Print Language: Yi
[2025-01-24 15:50] LABS: MANUAL DIFF FLAG NO
[2025-01-24 15:53] LABS: Appearance Urine Clear; Basophils Absolute Auto 0.1 X10*3/uL (0.0-0.2); Basophils Percent Auto 0.3 % (0-2); Color Urine Yellow; Eosinophils Absolute Auto 0.1 X10*3/uL (0.0-0.4); Eosinophils Percent Auto 0.3 % (0-4); Glucose Urine UA Negative (Negative); Hematocrit 37.1 % (37.0-47.0); Hemoglobin 12.3 g/dl (12.0-16.0); Imm Gran Abs Auto 0.08 X10*3/uL (0.00-0.03); Imm Gran Pct Auto 0.5 % (0.0-0.4); Leukocyte Esterase Urine Negative (Negative); Lymphocytes Absolute Auto 1.1 X10*3/uL (1.2-4.9); Lymphocytes Percent Auto 6.5 % (20-40); Mean Corpuscular HGB Conc 33.2 g/dl (31.0-35.0); Mean Corpuscular Hemoglobin 29.1 pg (27.0-33.0); Mean Corpuscular Volume 87.9 fL (80.0-98.0); Monocytes Absolute Auto 1.2 X10*3/uL (0.1-1.2); Monocytes Percent Auto 7.1 % (2-11); Neutrophils Absolute Auto 14.2 x10*3/uL (2.0-8.3); Neutrophils Percent Auto 85.3 % (45-73); Nitrite Urine Negative (Negative); Platelet Count 313 X10*3/uL (160-400); Red Blood Count 4.22 X10*6/uL (4.20-5.50); Red Cell Distribution Width 12.8 % (11.0-16.0); Urine Blood Negative (Negative); Urine Ketones Negative (Negative); Urine Protein Negative (Neg-Trace); White Blood Count 16.6 X10*3/uL (4.8-10.8)
[2025-01-24 15:59] LABS: Bacteria Urine None Seen (None Seen); Hyaline Casts Urine 0-2 /LPF (0-2); RBC Urine 0-2 /HPF (0-2); Squamous Epithelial Cell Urine 0-2 /HPF (0-2); WBC Urine 0-5 /HPF (0-5)
[2025-01-24 16:18] LABS: Alanine Aminotransferase 37 U/L (0-31); Albumin Level 4.4 g/dL (3.5-5.0); Anion Gap 12 (12-20); Aspartate Amino Transferase 28 U/L (5-31); Bilirubin Total 0.4 mg/dL (0.0-1.0); Blood Urea Nitrogen 4 mg/dL (9-16); Calcium 9.7 mg/dL (8.4-10.2); Carbon Dioxide 23 mmol/L (22-29); Chloride 106 mmol/L (96-108); Creatinine Clr Calc Pharmacy 110.8; Estimated Glomerular Filt Rate > 60; Glucose Random 103 mg/dL (60-115); Lipase 13 U/L (8-78); Potassium 3.5 mmol/L (3.3-5.1); Sodium 137 mmol/L (135-145); Total Protein 8.6 g/dL (6.5-8.0)
[2025-01-24 16:20] LABS: HCG Quantitative 78 mIU/mL
[2025-01-24 17:01] LABS: Alkaline Phosphatase 99 U/L (39-117)
[2025-01-24 20:33] VITALS: BP 117/67; PULSE 133; RESP 19; TEMP 37.9; O2SAT 98
[2025-01-24] MEDS: Acetaminophen 325 MG TABLET 650 MG PO (20:39)
[2025-01-24] MEDS: iohexoL 350 MG/ML 100 ML INFUS..BTL 85 ML IV (21:12)
[2025-01-24 21:15] VITALS: BP 110/59; PULSE 114; RESP 16; TEMP 37.4; O2SAT 99
[2025-01-24] MEDS: ondansetron HCL 4 MG/2 ML VIAL IVPUSH (22:27)
[2025-01-24] MEDS: 0.9 % Sodium Chloride 1,000 ML 999 ML IV (22:27)
[2025-01-24] MEDS: Ketorolac Tromethamine 15 MG/ML VIAL IVPUSH (22:27)
[2025-01-25] MEDS: 0.9 % Sodium Chloride 1,000 ML 125 ML IVCONT (00:01)
[2025-01-25] MEDS: Morphine Sulfate 4 MG/ML CARTRIDGE IVPUSH (00:01)
[2025-01-25] MEDS: Piperacillin Sodium/Tazobactam 4.5 GM in 0.9 % Sodium Chloride 100 ML IV (00:01)
[2025-01-25 00:15] VITALS: PULSE 89; RESP 16; TEMP 37.4; O2SAT 98
[2025-01-25 01:20] VITALS: BP 101/45; PULSE 86; RESP 18; TEMP 37.4; O2SAT 96
--- NOTE | 2025-01-25 01:29 | PC.NURSE ---
report given to [facility] ED PINKY Mccullough and to transport [facility].
[2025-01-25 01:36] VITALS: BP 101/45; PULSE 86; RESP 18; TEMP 37.4; O2SAT 96
== END 2025-01-25 01:37 | disposition short-term general hospital (02) ==
PROVIDERS: Physician Assistant; Emergency Provider Emergency Medicine Emergency Medical Services; PCP Internal Medicine
DX: R10.31 Right lower quadrant pain (principal); O03.39 Incomplete spontaneous abortion with other complications; N83.201 Unspecified ovarian cyst, right side; Z79.899 Other long term (current) drug therapy
CPT/HCPCS: 36415; 74177; 76830; 76856; 80053; 81001; 83690; 84702; 85025; 93975; 96361; 96365; 96375; 99285; J1885; J2270; J2405; J2543; Q9967

== ENCOUNTER → 2025-01-24 20:38 | Outpatient (BNV) | payer BC, SELFPAY | PROVIDERS: Emergency Provider Emergency Medicine Emergency Medical Services; PCP Internal Medicine; Visit Provider Radiology Diagnostic Radiology | DX: R10.31 Right lower quadrant pain (principal) | CPT/HCPCS: 74177 ==

== ENCOUNTER 2025-03-17 23:03 | Emergency (ER) | payer BC, SELFPAY ==
[2025-03-17 23:16] VITALS: BP 116/62; PULSE 104; RESP 18; TEMP 37; O2SAT 97; BMI 24.3
[2025-03-17 23:46] LABS: IDNOW Serial# 55D5AD1C; Strep A Nucleic Acid Negative (Negative)
[2025-03-18 00:10] LABS: Influenza A PCR NEGATIVE (Negative); Influenza B PCR NEGATIVE (Negative); Resp Syncy Virus RNA Qual PCR NEGATIVE (Negative); SARS COV2 PCR INHOUSE NEGATIVE (Negative)
--- NOTE | 2025-03-18 00:27 | ED.GENADULT ---
HPI - General Adult General Chief complaint: General Medical Stated complaint: Sunburn Time Seen by Provider: 03/18/25 00:22 Source: patient Mode of arrival: ambulatory Limitations: no limitations History of Present Illness ED Provider: Dr. Kayy Bonilla HPI narrative: Patient comes to the emergency room complaining of mild sore throat, fever, chills, lightheadedness. Patient states that she recently traveled back from [place] and she got sunburn. Patient denies any shortness of breath, any chest pain, no syncopal episodes Related Data Previous Rx's ?Medication ?Instructions ?Recorded ketorolac 10 mg tablet 10 mg PO BID PRN pain #7 tabs 02/01/24 cefuroxime axetil 500 mg tablet 500 mg PO BID 7 days #14 tabs 11/06/24 phenazopyridine 100 mg tablet 100 mg PO TID PRN pain 6 doses #6 11/06/24 (Pyridium) tabs aloe vera 99.5 % topical gel 1 ea topical Q4-5H PRN skin pain 03/18/25 #237 mL ibuprofen 600 mg tablet 600 mg PO TID PRN fever or pain 03/18/25 #20 tabs ibuprofen 600 mg tablet 600 mg PO TID PRN fever or pain 03/18/25 #20 tabs Allergies Allergy/AdvReac Type Severity Reaction Status Date / Time Sulfa (Sulfonamide Allergy Severe Anaphylaxis Verified 03/17/25 23:20 Antibiotics) sulfamethoxazole Allergy Severe Anaphylaxis Verified 03/17/25 23:20 [From Bactrim] trimethoprim [From Bactrim] Allergy Severe Anaphylaxis Verified 03/17/25 23:20 Review of Systems Review of Systems: Constitutional : No Weight loss, No Fever, No Chills, No Night Sweats, No Fatigue, No Malaise ENT/Mouth : No Hearing loss, No Ear Pain, No Nasal Congestion, No Sinus Pain, No Hoarseness, No sore throat, No Rhinorrhea, No Swallowing Difficulty Eyes: No Eye Pain, No Swelling, No Redness, No Foreign Body, No Discharge, No Vision Changes Cardiovascular : No Chest Pain, No SOB, No Dyspnea on Exertion, No Orthopnea, No Edema, No Palpitations Respiratory : No Cough, No Sputum, No Wheezing, No Smoke Exposure, No Dyspnea Gastrointestinal : No Nausea, No Vomiting, No Diarrhea, No Constipation, No abdominal Pain, No Hematochezia, No Melena Genitourinary : no irregular bleeding, No Dysuria, No Urinary Frequency, No Hematuria, No Urinary Incontinence, No Urgency, No Flank Pain, No Urinary Flow Changes, No Hesitancy Musculoskeletal : No joint pain, No Myalgias, No Joint Swelling Skin : Complaining of sunburn in the shoulder Neuro : No Weakness, No Numbness, No Paresthesias, No Loss of Consciousness, No Dizziness, No Headache Psych : No Anxiety/Panic, No Depression, No SI/HI/AH/VH, No Social Issues, Heme/Lymph: No Bruising, No Bleeding,No Lymphadenopathy Endocrine : No Polyuria, No Polydipsia, No Temperature Intolerance [facility] Social History Social History Household Members Other:: Lives w/ mom and sister Do you have a plan to hurt others: No Plan Physical Exam ED Vital Signs: Vital Signs - 24 hr 03/17/25 23:16 03/18/25 01:04 03/18/25 01:05 Temperature 98.6 F Pulse Rate 104 H 81 84 Respiratory Rate 18 Blood Pressure 116/62 109/61 110/62 Pulse Oximetry 97 Oxygen Delivery Method Room Air 03/18/25 01:06 03/18/25 01:07 Temperature 98.3 F Pulse Rate 97 97 Respiratory Rate 16 Blood Pressure 125/61 122/68 Pulse Oximetry 99 Oxygen Delivery Method Room Air BMI result Body Mass Index 24.3 Const Other: Appearance: Alert. Oriented X3. No acute distress. Eyes: Pupils equal, round and reactive to light. ENT: Pharynx normal. Neck: Normal inspection. Neck supple. No lymph nodes noted. No crepitus CVS: Normal heart rate and rhythm. Pulses normal. Normal S1 and S2 Respiratory: No respiratory distress. Breath sounds normal. No Wheezing. No rales Abdomen: Soft and nontender. No rigidity. No distention. Skin: Skin warm and dry. Second degree sunburn over the shoulders Extremities: No lower extremity edema. No Lacerations. No Rash Neuro: Oriented X 3. No motor deficit. No sensory deficit. Moving all extremities. No slurred speech. CN 2 through 12 grossly intact Psych: calm, cooperative, normal affect Course Course Course Narrative: All of patient's labs and imaging pending Medical Decision Making Medical Decision Making [facility] Narrative: My interpretation of labs: No significant abnormality in patient's hematology , white blood cell count elevated to 12.8 likely secondary to reactive leukocytosis, and chemistry, hCG negative Patient's vitals stable Lab Data [facility] Lab Attestation statement: I reviewed the patient's lab results. 03/18/25 00:47 03/18/25 00:47 Labs: Lab Results 03/17/25 03/18/25 Range/Units 23:26 00:47 WBC 12.9 H (4.8-10.8) X10*3/uL RBC 4.03 L (4.20-5.50) X10*6/uL Hgb 12.0 (12.0-16.0) g/dl Hct 35.4 L (37.0-47.0) % MCV 87.8 (80.0-98.0) fL MCH 29.8 (27.0-33.0) pg MCHC 33.9 (31.0-35.0) g/dl RDW 12.7 (11.0-16.0) % Plt Count 288 (160-400) X10*3/uL MPV 8.7 L (9.4-12.3) fL Immature Gran % (Auto) 0.3 (0.0-0.4) % Neut % (Auto) 76.6 H (45-73) % Lymph % (Auto) 12.8 L (20-40) % [place] % (Auto) 9.9 (2-11) % Eos % (Auto) 0.2 (0-4) % Baso % (Auto) 0.2 (0-2) % Lymph # (Auto) 1.7 (1.2-4.9) X10*3/uL [place] # (Auto) 1.3 H (0.1-1.2) X10*3/uL Eos # (Auto) 0.0 (0.0-0.4) X10*3/uL Baso # (Auto) 0.0 (0.0-0.2) X10*3/uL Abs Immat Gran (auto) 0.04 H (0.00-0.03) X10*3/uL Absolute Neuts (auto) 9.8 H (2.0-8.3) x10*3/uL Absolute Nucleated RBC 0.000 (0.0-0.012) X10*3/uL Nucleated RBC % (auto) 0.0 (0.0-0.2) /100WBC Sodium 140 (135-145) mmol/L Potassium 3.7 (3.3-5.1) mmol/L Chloride 106 (96-108) mmol/L Carbon Dioxide 24 (22-29) mmol/L Anion Gap 14 (12-20) BUN 5 L (9-16) mg/dL Creatinine 0.63 (0.5-1.4) mg/dL Estim Creat Clear Calc 121.8 Estimated GFR > 60 Random Glucose 107 (60-115) mg/dL Calcium 9.3 (8.4-10.2) mg/dL Total Bilirubin 0.3 (0.0-1.0) mg/dL Direct Bilirubin 0.1 (0.0-0.5) mg/dL AST 22 (5-31) U/L ALT 15 (0-31) U/L Alkaline Phosphatase 104 (39-117) U/L Total Protein 7.8 (6.5-8.0) g/dL Albumin 4.3 (3.5-5.0) g/dL Beta HCG, Quant < 2 mIU/mL Ethyl Alcohol < 10 mg/dL Influenza Type A (PCR) NEGATIVE (Negative) Influenza Type B (PCR) NEGATIVE (Negative) RSV RNA Qual (PCR) NEGATIVE (Negative) SARS-CoV-2 RNA (RT-PCR) NEGATIVE (Negative) S. pyogenes GrpA SCOTT Negative (Negative) Discharge Plan Discharge Clinical Impression: Sunburn of second degree Patient Disposition: Home, Self-Care Instructions: Sunburn (ED), Cold Compress or Soak (ED) Additional Instructions: Please follow-up with your primary care physician tomorrow. If you have any worsening or new symptoms, please return to the emergency room or call 911 Prescriptions: New ibuprofen 600 mg tablet 600 mg PO TID PRN (Reason: fever or pain) Qty: 20 0RF aloe vera 99.5 % gel 1 ea topical Q4-5H PRN (Reason: skin pain) Qty: 237 0RF ibuprofen 600 mg tablet 600 mg PO TID PRN (Reason: fever or pain) Qty: 20 0RF No Action ketorolac 10 mg tablet 10 mg PO BID PRN (Reason: pain) Qty: 7 0RF Rx Instructions: Do not take ibuprofen, Aleve, naproxen with this medication, only Tylenol if needed cefuroxime axetil 500 mg tablet 500 mg PO BID 7 Days Qty: 14 0RF phenazopyridine [Pyridium] 100 mg tablet 100 mg PO TID PRN (Reason: pain) Qty: 6 0RF Print Language: Urdu
[2025-03-18 00:51] LABS: MANUAL DIFF FLAG NO
[2025-03-18 00:53] LABS: Basophils Percent Auto 0.2 % (0-2); Eosinophils Percent Auto 0.2 % (0-4); Hematocrit 35.4 % (37.0-47.0); Imm Gran Abs Auto 0.04 X10*3/uL (0.00-0.03); Imm Gran Pct Auto 0.3 % (0.0-0.4); Lymphocytes Absolute Auto 1.7 X10*3/uL (1.2-4.9); Lymphocytes Percent Auto 12.8 % (20-40); Mean Corpuscular HGB Conc 33.9 g/dl (31.0-35.0); Mean Corpuscular Hemoglobin 29.8 pg (27.0-33.0); Mean Corpuscular Volume 87.8 fL (80.0-98.0); Mean Platelet Volume 8.7 fL (9.4-12.3); Monocytes Absolute Auto 1.3 X10*3/uL (0.1-1.2); Monocytes Percent Auto 9.9 % (2-11); Neutrophils Absolute Auto 9.8 x10*3/uL (2.0-8.3); Neutrophils Percent Auto 76.6 % (45-73); Platelet Count 288 X10*3/uL (160-400); Red Blood Count 4.03 X10*6/uL (4.20-5.50); Red Cell Distribution Width 12.7 % (11.0-16.0); White Blood Count 12.9 X10*3/uL (4.8-10.8)
[2025-03-18 01:04] VITALS: BP 109/61; PULSE 81
[2025-03-18 01:05] VITALS: BP 110/62; PULSE 84
[2025-03-18 01:06] VITALS: BP 125/61; PULSE 97
[2025-03-18 01:07] VITALS: BP 122/68; PULSE 97; RESP 16; TEMP 36.8; O2SAT 99
[2025-03-18 01:21] LABS: Alanine Aminotransferase 15 U/L (0-31); Albumin Level 4.3 g/dL (3.5-5.0); Alkaline Phosphatase 104 U/L (39-117); Anion Gap 14 (12-20); Aspartate Amino Transferase 22 U/L (5-31); Bilirubin Direct 0.1 mg/dL (0.0-0.5); Bilirubin Total 0.3 mg/dL (0.0-1.0); Blood Urea Nitrogen 5 mg/dL (9-16); Calcium 9.3 mg/dL (8.4-10.2); Carbon Dioxide 24 mmol/L (22-29); Chloride 106 mmol/L (96-108); Creatinine Clr Calc Pharmacy 121.8; Estimated Glomerular Filt Rate > 60; Ethanol < 10 mg/dL; Glucose Random 107 mg/dL (60-115); HCG Quantitative < 2 mIU/mL; Potassium 3.7 mmol/L (3.3-5.1); Sodium 140 mmol/L (135-145); Total Protein 7.8 g/dL (6.5-8.0)
[2025-03-18 01:28] LABS: Amphetamine Screen Urine Not Detected (Not Detect); Barbiturates, Urine Not Detected (Not Detect); Benzodiazepines Screen Urine Not Detected (Not Detect); Buprenorphine Scr Not Detected (Not Detect); Cannabinoid Screen Urine Not Detected (Not Detect); Cocaine Screen Urine Not Detected (Not Detect); Fentanyl, urine Not Detected (Not Detect); Methadone Screen, Urine Not Detected (Not Detect); Opiate Screen Urine Not Detected (Not Detect); Oxycodone Screen Urine Not Detected (Not Detect); Phencyclidine Screen Urine Not Detected (Not Detect)
[2025-03-18 01:45] VITALS: BP 122/68; PULSE 97; RESP 16; TEMP 36.8; O2SAT 99
== END 2025-03-18 01:55 | disposition home or self-care (01) ==
LOC: HO.ED 03-18 01:55
PROVIDERS: Emergency Provider Emergency Medicine; PCP Internal Medicine
DX: L55.1 Sunburn of second degree (principal); J02.9 Acute pharyngitis, unspecified; R50.9 Fever, unspecified; R42 Dizziness and giddiness; Z03.818 Encounter for observation for suspected exposure to other biological agents ruled out; Z79.899 Other long term (current) drug therapy
CPT/HCPCS: 0241U; 36415; 80048; 80076; 80307; 84702; 85025; 87651; 99283

== ENCOUNTER 2025-11-08 00:01 | Emergency (ER) | payer BC, SELFPAY ==
--- OUTSIDE RECORDS SUMMARY | 2025-11-05 23:59 | XMS_ITS | Continuity of Care Document ---
Author Organization [facility] Address [address] [place] [address]- Support Name Relationship Address Phone WALSH, CALI Personal Relationship Unknown Unava ilable VILLAREAL, GRISSELLE Personal Relationship Unknown Roselyn vailable WALSH, CALI Personal Relationship Unknown Unava ilable VILLAREAL, SAEID mother Unknown Unavailable VILLAREAL COLON, GRISSELLE mother Unknown Unavai lable WALSH, CALI Personal Relationship Unknown Unava ilable WALSH, CALI Personal Relationship Unknown Unava ilable WALSH, CALI Personal Relationship Unknown Unava ilable WALSH, PAULA father Unknown Unavailable VILLAREAL, GRISSELLE Personal Relationship Unknown Roselyn vailable VILLAREAL, GRISSELLE Personal Relationship Unknown Roselyn vailable WALSH, CHAYITO Personal Relationship Unknown Unava ilable WALSH, CHAYITO Personal Relationship Unknown Unava ilable VILALREAL, GRISSELLE Personal Relationship Unknown Roselyn vailable [place], SORAYA spouse Unknown Unavailable VILLAREAL, SAEID PAULA mother Unknown Unavail able VILLAREAL, GRISSELLE Personal Relationship Unknown Roselyn vailable WALSH, CALI Personal Relationship Unknown Unava ilable WALSH, CALI Personal Relationship Unknown Unava ilable WALSH, CALI Personal Relationship Unknown Unava ilable FRANKLIN, MARIAH Personal Relationship Unknown Unav ailable VILLAREAL, GRISSELLE Personal Relationship Unknown Roselyn vailable VILLAREAL, GRISSELLE Personal Relationship Unknown Roselyn vailable VILLAREAL, GRISSELLE Personal Relationship Unknown Roselyn vailable VILLAREAL, GRISSELLE Personal Relationship Unknown Roselyn vailable WALSH, CALI Personal Relationship Unknown Unava ilable WALSH, CALI Personal Relationship Unknown Unava ilable Care Team Providers Care Radio Electronics Technician Name Role Phone Radha WANG, Anika Crowe Primary Care Physician [phone] Encounter [facility] NBR [id number] Date(s): 10/29/25 - 11/05/25 [facility] [address] [place] [address]- Encounter Diagnosis Nausea vomiting and diarrhea(Discharge Diagnosis) - 10/29/25 Acute sinusitis, unspecified(Discharge Diagnosis) - 10/29/25 Attending Physician: Jose M KESSLER, Mandy Referring Physician: Anika Garcia MD Encounter Type: Office Visit Allergies, Adverse Reactions, Alerts Substance Criticality Severity Reaction Reaction Severity Status sulfa drugs Active Bactrim Hives Active Functional Status Functional Status Assessment Assessment Assessment Component Result Effecti ve Date Disability status [CUBS] I'm Thriving - no identified disability 10/29/25 Because of a physica l, mental, or emotional condition, do you have serious difficulty concentrating, remembering, or making decisions No 10/29/25 Difficulty communica ting in usual language No 10/29/25 Are you deaf, or do you have serious difficulty hearing No 10/29/25 Do you have difficul ty dressing or bathing No 10/29/25 Do you need any willie tional assistance or accommodations during your visit No 10/29/25 Are you blind, or do you have serious difficulty seeing, even when wearing glasses No 10/29/25 Because of a physica l, mental, or emotional condition, do you have difficulty doing errands alone such as visiting a physician's office or shopping No 10/29/25 Do you have serious difficulty walking or climbing stairs No 10/29/25 Difficulty Reading O r Writing No 10/29/25 Immunizations Given and Recorded Vaccine Date Status Refusal Reason tetanus/diphtheria/pertussis, acel(Tdap) 08/01/25 Given tetanus/diphtheria/pertussis, acel(Tdap) 10/30/15 Given SARS-CoV-2(COVID-19)mRNA-LNP vac([id number]) 08/27/23 Recorded influenza virus vaccine, inactivated 08/20/23 Carmelo rded influenza virus vaccine, inactivated 08/05/22 Give n influenza virus vaccine, inactivated 08/26/21 Carmelo rded influenza virus vaccine, inactivated 08/25/18 Give n influenza virus vaccine, inactivated 09/01/17 Give n influenza virus vaccine, inactivated 09/02/16 Give n influenza virus vaccine, inactivated 1 09/05/15 Gi nick influenza virus vaccine, inactivated 08/22/14 Give n influenza virus vaccine, inactivated 2 08/16/13 Re corded influenza virus vaccine, inactivated 3 08/12/12 Gi nick influenza virus vaccine, inactivated 08/21/11 Give n influenza virus vaccine, inactivated 4 10/01/10 Gi nick influenza virus vaccine, inactivated 5 10/01/09 Gi nick influenza virus vaccine, inactivated 6 09/04/08 Gi nick influenza virus vaccine, inactivated 7 10/13/07 Gi nick influenza virus vaccine, inactivated 09/17/06 Give n influenza virus vaccine, inactivated 8 10/05/05 Gi nikc influenza virus vaccine, inactivated 9 09/04/05 Gi nick [id number] 12y+ bivalent booster vax 10 08/05/22 Recorded SARS-CoV-2 (COVID-19) mRNA BNT-162b2 vac 12/06/21 Recorded SARS-CoV-2 (COVID-19) mRNA BNT-162b2 vac 03/29/21 Recorded SARS-CoV-2 (COVID-19) mRNA BNT-162b2 vac 03/08/21 Recorded Meningococcal Conjugate Vaccine 11/27/20 Given Meningococcal Conjugate Vaccine 10/30/15 Given Influenza Virus Vaccine (oldterm) 07/19/20 Recorde d Influenza Virus Vaccine (oldterm) 07/19/20 Recorde d Human Papillomavirus Vaccine 06/03/16 Given Human Papillomavirus Vaccine 11 03/04/16 Given Human Papillomavirus Vaccine 10/30/15 Given Hepatitis A Pediatric Vaccine 12 03/20/11 Given Hepatitis A Pediatric Vaccine 13 08/29/10 Given influ virus vac, H1N1, inactive(oldterm) 14 10/01/09 Given Poliovirus Vaccine, Inactivated 15 11/13/08 Given Poliovirus Vaccine, Inactivated 16 04/23/05 Given Poliovirus Vaccine, Inactivated 17 02/13/05 Given Poliovirus Vaccine, Inactivated 18 04 Given Varicella Virus Vaccine 19 11/13/08 Given Varicella Virus Vaccine 20 10/27/05 Given Measles/Mumps/Rubella Virus Vaccine 21 11/13/08 Gi nick Measles/Mumps/Rubella Virus Vaccine 22 10/27/05 Gi nick Measles/Mumps/Rubella Virus Vaccine 23 04/23/05 Gi nick diphtheria/tetanus/pertussis, acel(DTaP) 24 11/13/08 Given diphtheria/tetanus/pertussis, acel(DTaP) 25 03/04/06 Given diphtheria/tetanus/pertussis, acel(DTaP) 26 04/23/05 Given diphtheria/tetanus/pertussis, acel(DTaP) 27 02/13/05 Given diphtheria/tetanus/pertussis, acel(DTaP) 28 04 Given pneumococcal 7-valent vaccine 29 12/31/05 Given pneumococcal 7-valent vaccine 30 04/23/05 Given pneumococcal 7-valent vaccine 31 02/13/05 Given pneumococcal 7-valent vaccine 32 04 Given Haemophilus B conjugate (HbOC) vaccine 33 12/31/05 Given Haemophilus B conjugate (HbOC) vaccine 34 04/23/05 Given Haemophilus B conjugate (HbOC) vaccine 35 02/13/05 Given Haemophilus B conjugate (HbOC) vaccine 36 04 Given hepatitis B pediatric vaccine 37 04/23/05 Given hepatitis B pediatric vaccine 38 02/13/05 Given hepatitis B pediatric vaccine 39 04 Given hepatitis B pediatric vaccine 40 04 Given 1Result Comment: [09/05/2015] ORDERED BY DR. GARCIA 2Result Comment: [08/23/2013] GIVEN BY JEREMY QUIROS RN ORDER DR GARCIA 3Admin Note: VIS 05/16/12 GIVEN 4Admin Note: MF-RN 5Admin Note: vis 06/25/09 given 6Admin Note: VIS 06/07/08 GIVEN admin by Magali ABBOTT 7Admin Note: vis 05/30/2007 8Admin Note: ADMINISTERED BY RN 9Admin Note: ADMINISTERED BY RN 10Result Comment: [id number] 11Result Comment: [03/04/2016] ORDERED BY DR. GARCIA 12Admin Note: VIS 02/02/06 GIVEN 13Admin Note: VIS 02/02/06 GIVEN 14Admin Note: VIS 08/23 GIVEN 15Admin Note: VIS GIVEN 16Admin Note: ADMINISTERED BY RN 17Admin Note: ADMINISTERED BY RN 18Admin Note: ADMINISTERED BY RN 19Admin Note: VIS 01/26/08 GIVEN 20Admin Note: ADMINISTERED BY RN 21Admin Note: VIS 01/26/08 GIVEN 22Admin Note: GIVEN BY RN 23Admin Note: ADMINISTERED BY RN 24Admin Note: VIS 05/15 25Admin Note: ADMINISTERED BY RN 26Admin Note: ADMINISTERED BY RN 27Admin Note: ADMINISTERED BY RN 28Admin Note: ADMINISTERED BY RN 29Admin Note: ADMINISTERED BY RN 30Admin Note: ADMINISTERED BY RN 31Admin Note: ADMINISTERED BY RN 32Admin Note: ADMINISTERED BY RN 33Admin Note: ADMINISTERED BY RN 34Admin Note: ADMINISTERED BY RN 35Admin Note: ADMINISTERED BY RN 36Admin Note: ADMINISTERED BY RN 37Admin Note: ADM BY RN 38Admin Note: ADMINISTERED BY RN 39Admin Note: ADMINISTERED BY RN 40Admin Note: ADMINISTERED BY RN Medications Symbicort 160mcg/4.5mcg Inhaler 2, puffs, Inhalation, Daily in AM, RINSE THROAT AFTER USE., # 10.2 each, Refills 2, Tot. Refills 2,Maintenance, 08/25/24 9:23:00 AM EDT, Route to Pharmacy Electronically, [id number], [facility]/pharmacy #[id number], 155, cm, 03/20/24 9:06:00 EDT, Height, 55, kg, 02/28/24 12:57:00 EDT,Dry Weight Start Date: 08/25/24 Status: Ordered Medication Dispense Status: Completed Quantity: 10.2 Unit: each Total Allowed Fills: 3 Fills Dispensed: 0 Problem List Condition Confirmation Course Effective Dates Status Health St atus Informant S/P appendectomy Confirmed 01/25/25 Active Diagnosis Diagnosis Type Effective Dates Health Status Clinical Service Informant Nausea vomiting and diarrhea Discharge Diagnosis 10/29/25 Acute sinusitis, unspecified Discharge Diagnosis 10/29/25 Vital Signs Most recent to oldest [Reference Range]: 1 Height 160 cm (10/29/25 2:47 PM) Oxygen Saturation [94-100 %] 100 % (10/29/25 2:47 PM) Pulse Rate [55-90 bpm] 75 bpm (10/29/25 2:47 PM) Blood Pressure [90-138/55-84 mm Hg] 108/ 63mm Hg (10/29/25 2:47 PM) Temperature [96.8-100.4 DegF] 97.2 DegF (10/29/25 2:47 PM) Mode of Delivery (Oxygen) Room air (10/29/25 2:47 PM) Blood pressure sites Arm, right (10/29/25 2:47 PM) Temperature Route Temporal (10/29/25 2:47 PM) Social History Social History Type Response Smoking Status Never (less than 100 in lifetime) entered on: 02/18/23 Sex Sex Representation Female (finding) Note * Lashanda Smith: PERFORM Event Display: Patient Education/Instruction Authored Date: [id number] Ambulatory Adult Visit Summary [facility] [address] [place] [address] Name: CHAYITO WALSH : 2005?? Visit: 10/29/2025 14:25?? Ambulatory Visit Instructions ?? Your Care Team Primary Care Provider Anika Garcia MD? This Visit Provider [facility] [place] 2 Your Diagnosis Nausea vomiting and diarrhea Acute sinusitis, unspecified Vitals Signs Temperature: 97.2 DegF Height: 160 cm Pulse Rate: 75 bpm ?? Systolic Blood Pressure: 108 mm Hg ?? Diastolic Blood Pressure: 63 mm Hg ?? Oxygen Saturation: 100 % ?? Medications The list below reflects the information in our records and provided by you today along with any changes made during this visit. Please continue your medications until treatment is completed or stopped by your provider. If this is different from the information you have or there are other questions,please contact the prescribing provider. What How Much When Why Instructions New Loperamide (loperamide 2 mg oral tablet) 1 tab(s) Oral Every 4 hours as needed for as needed for loose stool Nausea vomiting and diarrhea Special Instructions: after each loose stool, not to exceed 8 capsules, or 16 mg, in 24 hours Ordering Physician: Mandy Salguero NP ?? Pickup at [facility]/pharmacy #[id number] New Ondansetron (ondansetron 4 mg oral tablet, disintegrating) 1 tab(s) Oral Every 6 hours as needed for Nausea & Vomiting Nausea vomiting and diarrhea Ordering Physician: Mandy Salguero NP Pickup at [facility]/pharmacy #[id number] Unchanged Budesonide-Formoterol (Symbicort 160mcg/ 4.5mcg Inhaler) 2 puff(s) Inhalation Daily in the morning Special Instructions: RINSE THROAT AFTER USE. Ordering Physician: Anika Garcia MD ?? Pharmacy Information [facility]/pharmacy #[id number]: [address], [place] [id number] [phone] Medications and Immunizations Administered Medications Given During Visit No medications given during this visit.?? Allergies (NKA means No Known Allergies) Bactrim??Hives sulfa drugs Common Emergency Awareness Tips IS IT A STROKE? Act FAST and Check for these signs: FACE Does the face look uneven? ARM Does one arm drift down? SPEECH Does their speech sound strange? TIME Call at any sign of stroke ?? Heart Attack Signs Chest discomfort: Most heart attacks involve discomfort in the center of the chest and lasts more than a few minutes, or goes away and comes back. It can feel like uncomfortable pressure, squeezing, fullness or pain. Discomfort in upper body: Symptoms can include pain or discomfort in one or both arms, back, neck, jaw or stomach. Shortness of breath: With or without discomfort. Other signs: Breaking out in a cold sweat, nausea, or lightheaded. Remember, MINUTES DO MATTER. If you experience any of these heart attack warning signs, call to get immediate medical attention! ?? Smoking can increase your chances of developing chronic health problems and can cause harmful effects to other family members in your house. If you smoke, you are strongly encouraged to quit. Please call [employer] at [phone] or 4-132-138omelett.es ([phone]) or log in to [email or web address] for referrals to smoking cessation programs. ?? The National Suicide Prevention Hotline is available 07/06 if you or someone you know needs to find a reason to keep living. By calling 9-412-792-[employer] (6436) you'll be connected to a skilled, trained counselor at a crisis center in your area. [facility] Portal You can view and manage your care through the patient portal or by using a health care sim of your choosing. [employer] is a website that allows you to securely view your medical information including your hospital discharge summary, office visit summaries, medications and follow-up visits. You can also request appointments, renew medications, and request access to your medical information using a health care sim of your choosing, or just ask a question. You can enroll at [email or web address] or register during your next office visit. [facility], in keeping with [facility] guidance, no longer requires face masks for staff, patientsor visitors in most situations. Similiar to time spent indoors at other locations, there is the chance that you were exposed to repiratory viruses during your time with us (such as flu or COVID-19). If you develop symptoms concerning for a viral respiratory infection, please seek testing (and treatment if indicated) from your medical provider or home test kit. ?? Disclaimer: The information provided is of a general nature and is intended to be used in conjunction with the recommendations and advice of your health care practitioner. Every effort has been made to ensure that the information provided is accurate and complete at the time it is provided to you however, as your needs change, or, as new information becomes available, different or additional instructions may be required. ?? If you have questions, please consult with your primary care provider or pharmacist, as appropriate. This information is not intended to serve as substitution for assessment and evaluation by a qualified health care provider. If you do not have a primary care provider, you may find a [facility] provider by calling [facility] [employer] at [phone]. * Viri Rojas: PERFORM Event Display: Patient Education/Instruction Authored Date: [id number] Ambulatory Adult Visit Summary [facility] [address] [place] [address] Name: CHAYITO WALSH : 2005?? Visit: 10/29/2025 14:25?? Ambulatory Visit Instructions ?? Your Care Team Primary Care Provider Radha WANG, Anika Crowe? This Visit Provider Urgent [facility] 2 Your Diagnosis Nausea vomiting and diarrhea Acute sinusitis, unspecified Vitals Signs Temperature: 97.2 DegF Height: 160 cm Pulse Rate: 75 bpm ?? Systolic Blood Pressure: 108 mm Hg ?? Diastolic Blood Pressure: 63 mm Hg ?? Oxygen Saturation: 100 % ?? Medications The list below reflects the information in our records and provided by you today along with any changes made during this visit. Please continue your medications until treatment is completed or stopped by your provider. If this is different from the information you have or there are other questions,please contact the prescribing provider. What How Much When Why Instructions New Loperamide (loperamide 2 mg oral tablet) 1 tab(s) Oral Every 4 hours as needed for as needed for loose stool Nausea vomiting and diarrhea Special Instructions: after each loose stool, not to exceed 8 capsules, or 16 mg, in 24 hours Ordering Physician: Mandy Salguero NP ?? Pickup at [facility]/pharmacy #[id number] New Ondansetron (ondansetron 4 mg oral tablet, disintegrating) 1 tab(s) Oral Every 6 hours as needed for Nausea & Vomiting Nausea vomiting and diarrhea Ordering Physician: Mandy Salguero NP Pickup at [facility]/pharmacy #[id number] Unchanged Budesonide-Formoterol (Symbicort 160mcg/ 4.5mcg Inhaler) 2 puff(s) Inhalation Daily in the morning Special Instructions: RINSE THROAT AFTER USE. Ordering Physician: Radha WANG, Anika Crowe ?? Pharmacy Information [facility]/pharmacy #[id number]: [address], [place] [id number] [phone] Medications and Immunizations Administered Medications Given During Visit No medications given during this visit.?? Allergies (NKA means No Known Allergies) Bactrim??Hives sulfa drugs Common Emergency Awareness Tips IS IT A STROKE? Act FAST and Check for these signs: FACE Does the face look uneven? ARM Does one arm drift down? SPEECH Does their speech sound strange? TIME Call at any sign of stroke ?? Heart Attack Signs Chest discomfort: Most heart attacks involve discomfort in the center of the chest and lasts more than a few minutes, or goes away and comes back. It can feel like uncomfortable pressure, squeezing, fullness or pain. Discomfort in upper body: Symptoms can include pain or discomfort in one or both arms, back, neck, jaw or stomach. Shortness of breath: With or without discomfort. Other signs: Breaking out in a cold sweat, nausea, or lightheaded. Remember, MINUTES DO MATTER. If you experience any of these heart attack warning signs, call to get immediate medical attention! ?? Smoking can increase your chances of developing chronic health problems and can cause harmful effects to other family members in your house. If you smoke, you are strongly encouraged to quit. Please call [employer] at [phone] or [phone].es ([phone]) or log in to [email or web address] for referrals to smoking cessation programs. ?? The National Suicide Prevention Hotline is available 07/06 if you or someone you know needs to find a reason to keep living. By calling 1-472-585-[employer] (1983) you'll be connected to a skilled, trained counselor at a crisis center in your area. [facility] [employer] Portal You can view and manage your care through the patient portal or by using a health care sim of your choosing. [employer] is a website that allows you to securely view your medical information including your hospital discharge summary, office visit summaries, medications and follow-up visits. You can also request appointments, renew medications, and request access to your medical information using a health care sim of your choosing, or just ask a question. You can enroll at [email or web address] or register during your next office visit. [facility], in keeping with [facility] guidance, no longer requires face masks for staff, patientsor visitors in most situations. Similiar to time spent indoors at other locations, there is the chance that you were exposed to repiratory viruses during your time with us (such as flu or COVID-19). If you develop symptoms concerning for a viral respiratory infection, please seek testing (and treatment if indicated) from your medical provider or home test kit. ?? Disclaimer: The information provided is of a general nature and is intended to be used in conjunction with the recommendations and advice of your health care practitioner. Every effort has been made to ensure that the information provided is accurate and complete at the time it is provided to you however, as your needs change, or, as new information becomes available, different or additional instructions may be required. ?? If you have questions, please consult with your primary care provider or pharmacist, as appropriate. This information is not intended to serve as substitution for assessment and evaluation by a qualified health care provider. If you do not have a primary care provider, you may find a [facility] provider by calling [employer] at [phone]. Patient Care team information Care Team Personnel Name: Anika aGrcia MD Position: [facility] Physician - Primary Care Member Role: PCP Address: [address] [place] [id number] Telecom: Care Team Related Persons Name: KOLE OLIVAS Name: SAEID VILLAREAL Name: PAULA WALSH Name: SORAYA [place] Insurance Providers Guarantor name: KOLE VERDIN Health Plan Information #: 1 Payer: [facility] Payer Identifier: NA Member Number: [id number] Group Number: [id number] Subscriber Identifier: [id number] Relationship to Subscriber: Parent Coverage Type: NA Coverage Verification Date: NA Telecom: Address:
--- NOTE | ~2025-11-08 | XR_ITS ---
CLINICAL HISTORY: fall 4 view left knee Comparison: None provided Findings: Bones intact. No dislocations. No significant loss of joint space, osteophytes, or erosions. No joint effusion. No radiopaque foreign body. IMPRESSION: 1. No acute findings. This document has been electronically signed by: Nolberto Ruth MD on 11/08/2025 02:12:26
[2025-11-08 00:06] VITALS: BP 119/56; PULSE 82; RESP 18; TEMP 36.5; O2SAT 99; BMI 28.3
--- NOTE | 2025-11-08 01:07 | ED_ITS ---
HPI - Extremity Injury (Lower) General Chief Complaint: Extremity Injury, Lower Stated Complaint: knee pain Time Seen by Provider: 11/08/25 01:06 History of Present Illness ED Provider: daisy ARRIOLA Narrative: Author / Clinician: Lucio Prabhakar MD Chief Complaint Left knee pain/swelling after injury; possible patellar dislocation (now reduced) History of Present Illness 20-year-old otherwise healthy female presents after injuring her left knee earlier today while walking up a flight of stairs. She lost her footing and struck her left knee against the wall. She did not fall down the stairs and denies any other trauma. Her boyfriend, who witnessed the event, observed that the patella was medially displaced. While the patient was seated, the patella spontaneously reduced, resulting in some improvement in the severe pain she initially felt. Since the incident, she reports swelling and pain of the left knee and has avoided weight bearing. She denies redness, bruising, or other injuries. --- Review of Systems Musculoskeletal: Positive for left knee pain and swelling, unable to bear weight. Skin: Denies redness or bruising. All other systems not specifically discussed. --- Physical Examination Vital Signs: Physical Exam: Gen: Alert, awake, well appearing, well hydrated. Head: Atraumatic Eyes: Anicteric, normal conjunctiva. ENT: Moist mucosa, no pallor. Neck: Supple. Skin: Intact; no bruising or redness noted. Respiratory: Breathing comfortably, no distress. Clear to auscultation bilaterally, symmetric chest expansion, no wheeze, rales, or rhonchi. Cardiovascular: Regular rate and rhythm. No murmurs or rubs. Well-perfused periphery, warm extremities. No edema. Abdominal: Soft, non-distended. No palpable masses or tenderness. Musculoskeletal (Left Knee): Mild effusion and diffuse tenderness. Patella without deformity. Quadriceps and patellar tendons intact. No popliteal mass or tenderness. Mild laxity with varus stress. Negative anterior and posterior drawer tests. Remainder of extremities well perfused and without focal t enderness or deformity. Neuro: Alert. Gross movement of all extremities intact. Psych: Calm --- Assessment & Plan Preliminary Differential: - Left patellar dislocation (now reduced) / left knee ligamentous sprain Medical Decision Making This is a 20-year-old otherwise healthy female with an acute left knee injury consistent with spontaneous reduction of a patellar dislocation. Examination shows no evidence of vascular compromise or occult knee dislocation. --- Risk: - Low: Acute Uncomplicated Plan: Initial Plan - Apply hinged knee brace today in ED. - Opx-zpnfxq-ztpigwe on the left lower extremity until cleared by orthopedics. - Rest, ice, and elevation as needed for pain and swelling. - Early passive [id number]-[id number] exercises per discharge instructions. - Outpatient follow-up with orthopedics. - Provide written discharge instructions regarding brace use, removal, and return precautions. Data Analysis: - Imaging: Independently interpretion of imaging: normal patella position, no fx Additional Complexity: - Social Determinants of health: [ ] - Consults: Orthopedics (outpatient follow-up) - Independent review of External records available: [ ] --- ED Course, Updates Patient evaluated; knee brace applied. Discharge instructions provided. Disposition Critical Care: [N/A] Discharge Instructions 1. Keep the hinged knee brace in place at all times except as directed for hy giene or passive nshww-qm-kychnr exercises. 2. Xsj-vuovja-lpkdswu on the left leg until seen by orthopedics. 3. Rest, ice, and elevate the knee to help with swelling and pain. 4. Begin gentle passive knee flexion/extension as tolerated while seated; avoid active twisting or pivoting. 5. Return to the ED for increasing pain, swelling, numbness, tingling, inability to move toes, or any new concerning symptoms. 6. Follow up with orthopedics within the next few days. Related Data Previous Rx's ?Medication ?Instructions ?Recorded ketorolac 10 mg tablet 10 mg PO BID PRN pain #7 tab s 02/01/24 cefuroxime axetil 500 mg tablet 500 mg PO BID 7 days # 14 tabs 11/06/24 phenazopyridine 100 mg tablet 100 mg PO TID PRN pain 6 doses #6 11/06/24 (Pyridium) tabs aloe vera 99.5 % topical gel 1 ea topical Q4-5H PRN sk in pain 03/18/25 #237 mL ibuprofen 600 mg tablet 600 mg PO TID PRN fever or p ain 03/18/25 #20 tabs ibuprofen 600 mg tablet 600 mg PO TID PRN fever or p ain 03/18/25 #20 tabs Allergies Allergy/AdvReac Type Severity Reaction Status Date / Time Sulfa (Sulfonamide Allergy Severe Anaphylaxis Verified 11/08/25 00:09 Antibiotics) sulfamethoxazole (From Allergy Severe Anaphylaxis Verified 11/08/25 00:09 Bactrim) trimethoprim (From Bactrim) Allergy Severe Anaphylaxis Verified 11/08/25 00:09 COUNTS INCLUDE 234 BEDS AT THE [facility] Social History Social History Household Members Other:: Lives w/ mom and sister Advance Directives: No Advance Directives Information Provided: Yes Physical Exam Vital Signs: Vital Signs: Last Vital Signs Temp 98.6 F 11/08/25 02:07 Pulse 89 11/08/25 02:07 Resp 19 11/08/25 02:07 BP 100/62 11/08/25 02:07 Pulse Ox 99 11/08/25 02:07 O2 Del Method Room Air 11/08/25 02:07 BMI result Body Mass Index 28.3 Medications Administered Discontinued Medications Generic Name Dose Route Start Last Admin Trade Name Freq PRN Reason Stop Dose Admin Ibuprofen 600 mg 11/08/25 01:32 11/08/25 02:02 Ibuprofen 600 Mg Tablet PO 11/08/25 01:33 600 mg ONCE ONE Administration Discharge Plan Discharge Clinical Impression: Closed dislocation of patella, Acute knee pain Patient Disposition: Home, Self-Care Instructions: Crutch Instructions (ED), Knee Pain (ED), Patellar Dislocation (ED), Knee Immobilizer (ED) Additional Instructions: Discharge Instructions 1. Keep the hinged knee brace in place at all times except as directed for hygiene or passive hepvx-sb-iyhaqw exercises. 2. Ftk-lxclnz-mbzztua on the left leg until seen by orthopedics. 3. Rest, ice, and elevate the knee to help with swelling and pain. 4. Begin gentle passive knee flexion/extension as tolerated while seated; avoid active twisting or pivoting. 5. Return to the ED for increasing pain, swelling, numbness, tingling, inability to move toes, or any new concerning symptoms. 6. Follow up with orthopedics within the next few days. Prescriptions: No Action ketorolac 10 mg tablet 10 mg PO BID PRN (Reason: pain) Qty: 7 0RF Rx Instructions: Do not take ibuprofen, Aleve, naproxen with this medication, only Tylenol if needed cefuroxime axetil 500 mg tablet 500 mg PO BID 7 Days Qty: 14 0RF phenazopyridine [Pyridium] 100 mg tablet 100 mg PO TID PRN (Reason: pain) Qty: 6 0RF ibuprofen 600 mg tablet 600 mg PO TID PRN (Reason: fever or pain) Qty: 20 0RF aloe vera 99.5 % gel 1 ea topical Q4-5H PRN (Reason: skin pain) Qty: 237 0RF ibuprofen 600 mg tablet 600 mg PO TID PRN (Reason: fever or pain) Qty: 20 0RF Interventions: ED Discharge Assessment Last Done: 11/08/25 02:07 Discharge Date/Time: 11/08/25 02:08 Print Language: Uz[place]
[2025-11-08 02:07] VITALS: BP 100/62; PULSE 89; RESP 19; TEMP 37; O2SAT 99
== END 2025-11-08 02:08 | disposition home or self-care (01) ==
PROVIDERS: Emergency Provider Emergency Medicine; PCP Internal Medicine
DX: S83.005A Unspecified dislocation of left patella, initial encounter (principal); M25.562 Pain in left knee; W10.9XXA Fall (on) (from) unspecified stairs and steps, initial encounter; Y93.01 Activity, walking, marching and hiking; Y92.9 Unspecified place or not applicable; Y99.8 Other external cause status
CPT/HCPCS: 73564; 99283

== ENCOUNTER → 2025-11-08 | Outpatient (BNV) | payer BC, SELFPAY | PROVIDERS: Emergency Provider Emergency Medicine; PCP Internal Medicine; Visit Provider Radiology Diagnostic Radiology | DX: Z04.3 Encounter for examination and observation following other accident (principal) | CPT/HCPCS: 73564 ==